=== PATIENT | male | born 1970 | race Caucasian/White ===

== ENCOUNTER 2019-04-29 08:50 | Inpatient (IN) ==
[2019-04-29 09:28] VITALS: O2SAT 96
[2019-04-29 09:38] LABS: Appearance Urine Clear (Clear); Bacteria Urine Automated Negative (Negative); Bilirubin Urine Negative (Negative); Blood Urine Negative (Negative); Color Urine Dark Yellow; Epithelial Cell Urine Auto 0-5 /lpf (0-5); Glucose Urine UA Negative (Negative); Ketones Urine Negative (Negative); Leukocyte Esterase Urine Trace (Negative); Nitrite Urine Negative (Negative); Protein Urine Negative (Negative); RBC Urine Automated 0-4 /hpf (0-4); Specific Gravity Urine 1.026 (1.000-1.030); Urobilinogen Urine Negative (Negative); pH Urine 5.5 (4.5-7.5)
[2019-04-29 09:51] LABS: Basophils # (auto) 0.02 K/uL (0-0.2); Basophils % (auto) 0.3 %; Eosinophils # (auto) 0.07 K/uL (0-0.5); Hematocrit (blood only) 43.7 % (42-52); Hemoglobin 15.2 g/dL (14.0-18.0); Immature Granulocytes # (auto) 0.01 K/uL (0.00-0.02); Immature Granulocytes % (auto) 0.1 %; Lymphocytes # (auto) 0.81 K/uL (1.2-3.4); Lymphocytes % (auto) 11.6 %; Mean Corpuscular Hemoglobin 29.8 pg (25-34); Mean Corpuscular Hgb Conc 34.8 g/dL (32-36); Mean Corpuscular Volume 85.7 fL (80-100); Mean Platelet Volume 9.1 fL (7.4-10.4); Monocytes # (auto) 0.44 K/uL (0.11-0.59); Monocytes % (auto) 6.3 %; Neutrophils # (auto) 5.66 K/uL (1.4-6.5); Neutrophils % (auto) 80.7 %; Platelet Count 240 K/uL (130-400); RDW Standard Deviation 37.8 fL (36.4-46.3); White Blood Count 7.01 K/uL (4.8-10.8)
[2019-04-29 10:04] LABS: Amphetamines+Metham, Urine Neg (Neg); Barbiturates, Urine Neg (Neg); Benzodiazepine, Urine Neg (Neg); Cocaine, Urine Neg (Neg); MDMA (Ecstacy), Urine Neg (Neg); Methadone, Urine Neg (Neg); Opiate, Urine Neg (Neg); Phencyclidine, Urine Neg (Neg)
[2019-04-29 10:08] LABS: Albumin Level 3.7 gm/dl (3.4-5.0); BUN Creatinine Ratio 19.8 (10-20); Calcium 9.2 mg/dl (8.5-10.1); Creatinine Clr Calc Pharmacy 139.6 ml/min; Est GFR (African American) 121.1; Est GFR (Non-African American) 104.5; Potassium 3.9 mmol/L (3.5-5.1)
[2019-04-29 10:17] LABS: Acetaminophen < 2 ug/ml (10-30); Salicylate < 1.7 mg/dl (2.8-20)
[2019-04-29 10:19] LABS: Albumin Globulin Ratio 1.1 (0.9-2); Bilirubin,Total 0.7 mg/dl (0.2-1); Globulin 3.3 gm/dl (2.5-4.0); Thyroid Stimulating Hormone 0.629 uIu/ml (0.300-4.500)
[2019-04-29] MEDS ORDERED: LORazepam 1 MG TAB PO STA (13:38)
--- NOTE | 2019-04-29 14:50 | Emergency Department Note ---
Entered by Kilo Nicolas acting as a scribe for History of Present Illness General Chief Complaint: Mental Health Evaluation Stated Complaint: MENTAL HEALTH EVAL, SENT BY DR Kay Seen by Provider: 04/29/19 09:01 Source: patient History of Present Illness Provider complaint: feels depressed Onset (ago): unknown Duration: getting worse History of same: Yes Context: + significant life stressor Associated psychiatric symptoms: + depression, + suicidal ideation and + homicidal ideation; no auditory hallucinations and no visual hallucinations If self harm: + admits thoughts of self harm The patient is a 48 year old male who presents to the Emergency Room with complaints of worsening depression that has been ongoing for the past couple of weeks. Per the psych outpatient case manager, the patient was sent here by his psychiatrist because she feels he needs further treatment. The patient states that he has been working with his psychiatrist to find the most effective doses of medication, however he does not believe his medication is working. The patient currently is taking Concerta, Klonopin, Effexor, Remeron, Wellbutrin, Methylphenidate, and Claritin. The patient reports that he has had increased stress as of late due to finanacial reasons and training for his new job. The patient adds that he does not like this new job nor did he enjoy his old one, so he does not know what to do stating " I do not enjoy anything". Additionally the patient endorses reoccurring suicidal thoughts over the past few weeks. The patient recalls that he has felt this way before but states "this time is different". The patient notes he does not have any plan nor has he ever attempted suicide in the past. The patient also has had brief homicidal thoughts but not towards anyone in particular. The patient denies any physical symptoms at this time but does mention that he is generally restless and uncomfortable. The patient also denies any AVH as well as any smoking, alcohol or drug use. Home Medications Home Medications Medication Instructions Recorded Confirmed Type clonazepam 0.5 mg PO DAILY PRN 04/21/18 04/29/19 History fluticasone propionate [Flonase 2 spray INTRANASAL DAILY 04/21/18 04/29/19 History Allergy Relief] loratadine [Claritin] 10 mg PO DAILY 04/21/18 04/29/19 History methylphenidate HCl 54 mg PO DAILY 04/21/18 04/29/19 History amlodipine 2.5 mg PO DAILY 04/29/19 04/29/19 History brexpiprazole [Rexulti] 2 mg PO DAILY 04/29/19 04/29/19 History fluticasone propion-salmeterol 1 inh INHALATION BID 04/29/19 04/29/19 History [Wixela Inhub] mirtazapine 45 mg PO QPM 04/29/19 04/29/19 History zaleplon 10 mg PO QPM 04/29/19 04/29/19 History Allergies Allergy/AdvReac Type Severity Reaction Status Date / Time No Known Drug Allergies Allergy Unknown none Verified 04/29/19 09:29 tree nut Allergy Unknown itchy Verified 04/29/19 09:29 watery eyes, sneezing Past Med/Surg History Medical History Asthma (Chronic) Depression (Chronic) Family History Other Family history non-contributory Social History Preferred Language: Kazakh Communication Ability: Effective Drawing Hand Required: No Beliefs That Will Affect Care: None Feels Safe at Home: Yes Smoking Status: Never smoker Review of Systems See HPI for pertinent positives & negatives. and A total of 10 systems reviewed and were otherwise negative Physical Exam Vital Signs Vital Signs - 24 hr 04/29/19 08:54 Temperature 36.5 C Temperature Source Oral Pulse Rate 103 H Pulse Rhythm Regular Respiratory Rate 20 Respiratory Effort / Characteristics Non-Labored Spontaneous Respiratory Depth Normal Blood Pressure 151/88 H Blood Pressure Mean 109 Pulse Oximetry 96 Oxygen Delivery Method Room Air Sepsis Recent Fever Within 48 Hours No Sepsis New/Unexplained Change in Mental Status No Sepsis Action Taken by Nursing No Action Required GENERAL: alert, well appearing, well nourished, no distress, non-toxic EYE EXAM: normal conjunctiva, PERRL and EOM's grossly intact OROPHARYNX: no exudate, no erythema, lips, buccal mucosa, and tongue normal and mucous membranes are moist NECK: supple, no nuchal rigidity, no adenopathy, non-tender LUNGS: Clear to auscultation. Normal chest wall mechanics, no w/r/r HEART: no murmurs, S1 normal and S2 normal ABDOMEN: abdomen soft, non-tender, normo-active bowel sounds, no masses, no rebound or guarding. BACK: Back is symmetrical on inspection and there is no deformity, no midline tenderness, no CVA tenderness. SKIN: no rashes and no bruising UPPER EXTREMITIES: upper extremities are grossly normal. FROM, nml pulses b/l. LOWER EXTREMITIES: No pitting edema. FROM, nml pulses b/l. NEURO EXAM: Normal sensorium, cranial nerves II-XII grossly intact, normal speech, no gross weakness of arms, no gross weakness of legs. PSYCH: Flat affect. Course 0907: Past medical records reviewed. The patient was evaluated in room A08, and a complete history and physical examination were performed. 0035: Patient was seen and evaluated by psychiatric case management and at this time is willing to come in voluntarily for inpatient treatment. correctional guard have begun doing a bed search. 1450: Bed search is ongoing as patient has not yet been accepted at a facility due to insurance reasons. Additional facilities are currently reviewing. 1500: The patient was signed out to Dr. Tim at change of shift. See his note for more information. Administered Medications Discontinued Medications Lorazepam (Ativan) 1 mg PO NOW STA Stop: 04/29/19 13:39 Last Admin: 04/29/19 13:42 Dose: 1 mg Documented by: [id number] Medical Decision Making Differential Diagnosis Differential diagnoses considered include mood disorder, infection, hypoglycemia, electrolyte abnormalities, cardiac sources, intracerebral event, toxicologic, neurologic, as well as others. Medical Records Attestation: I reviewed the patient's medical records. Home Medications Current Medication List: was personally reviewed by me Laboratory Data Attestation: I reviewed the patient's lab results. Result diagrams: 04/29/19 09:29 04/29/19 09:29 Lab Results 04/29/19 04/29/19 04/29/19 Range/Units 09:20 09:20 09:29 WBC 7.01 (4.8-10.8) K/uL RBC 5.10 (4.7-6.1) M/uL Hgb 15.2 (14.0-18.0) g/dL Hct 43.7 (42-52) % MCV 85.7 (80-100) fL MCH 29.8 (25-34) pg MCHC 34.8 (32-36) g/dL RDW Std Deviation 37.8 (36.4-46.3) fL RDW Coeff of Ari 12.0 (11.5-14.5) % Plt Count 240 (130-400) K/uL MPV 9.1 (7.4-10.4) fL Immature Gran % (Auto) 0.1 % Neut % (Auto) 80.7 % Lymph % (Auto) 11.6 % Union % (Auto) 6.3 % Eos % (Auto) 1.0 % Baso % (Auto) 0.3 % Immature Gran # (Auto) 0.01 (0.00-0.02) K/uL Neut # (Auto) 5.66 (1.4-6.5) K/uL Lymph # (Auto) 0.81 L (1.2-3.4) K/uL Union # (Auto) 0.44 (0.11-0.59) K/uL Eos # (Auto) 0.07 (0-0.5) K/uL Baso # (Auto) 0.02 (0-0.2) K/uL Sodium (136-145) mmol/L Potassium (3.5-5.1) mmol/L Chloride (98-107) mmol/L Carbon Dioxide (21-32) mmol/L Anion Gap (3-11) BUN (7-18) mg/dl Creatinine (0.6-1.4) mg/dl Est Cr Clr Drug Dosing ml/min Est GFR ( Amer) Est GFR (Non-Af Amer) BUN/Creatinine Ratio (10-20) Glucose (70-99) mg/dl Calcium (8.5-10.1) mg/dl Total Bilirubin (0.2-1) mg/dl AST (15-37) U/L ALT (12-78) U/L Alkaline Phosphatase (45-117) U/L Total Protein (6.4-8.2) gm/dl Albumin (3.4-5.0) gm/dl Globulin (2.5-4.0) gm/dl Albumin/Globulin Ratio (0.9-2) TSH (0.300-4.500) uIu/ml Urine Color Dark Yellow Urine Appearance Clear (Clear) Urine pH 5.5 (4.5-7.5) Ur Specific Magnolia 1.026 (1.000-1.030) Urine Protein Negative (Negative) Urine Glucose (UA) Negative (Negative) Urine Ketones Negative (Negative) Urine Blood Negative (Negative) Urine Nitrite Negative (Negative) Urine Bilirubin Negative (Negative) Urine Urobilinogen Negative (Negative) Ur Leukocyte Esterase Trace H (Negative) Urine WBC (Auto) 1-5 (0-5) /hpf Urine RBC (Auto) 0-4 (0-4) /hpf U Hyaline Cast (Auto) 1-5 (0-5) /lpf U Epithel Cells (Auto) 0-5 (0-5) /lpf Urine Bacteria (Auto) Negative (Negative) Salicylates (2.8-20) mg/dl Urine Opiates Screen Neg (Neg) Ur Methadone, Qual Neg (Neg) Acetaminophen (10-30) ug/ml Urine Barbiturates Neg (Neg) Ur Phencyclidine (PCP) Neg (Neg) U Amphetamin/Meth Scrn Neg (Neg) MDMA (Ecstasy) Screen Neg (Neg) U Benzodiazepines Scrn Neg (Neg) Ur Cocaine Metabolite Neg (Neg) U Marijuana (THC) Screen Neg (Neg) Ethyl Alcohol mg/dL (0-3) mg/dl 04/29/19 04/29/19 04/29/19 Range/Units 09:29 09:29 09:29 WBC (4.8-10.8) K/uL RBC (4.7-6.1) M/uL Hgb (14.0-18.0) g/dL Hct (42-52) % MCV (80-100) fL MCH (25-34) pg MCHC (32-36) g/dL RDW Std Deviation (36.4-46.3) fL RDW Coeff of Ari (11.5-14.5) % Plt Count (130-400) K/uL MPV (7.4-10.4) fL Immature Gran % (Auto) % Neut % (Auto) % Lymph % (Auto) % Union % (Auto) % Eos % (Auto) % Baso % (Auto) % Immature Gran # (Auto) (0.00-0.02) K/uL Neut # (Auto) (1.4-6.5) K/uL Lymph # (Auto) (1.2-3.4) K/uL Union # (Auto) (0.11-0.59) K/uL Eos # (Auto) (0-0.5) K/uL Baso # (Auto) (0-0.2) K/uL Sodium 141 (136-145) mmol/L Potassium 3.9 (3.5-5.1) mmol/L Chloride 110 H (98-107) mmol/L Carbon Dioxide 24 (21-32) mmol/L Anion Gap 8.0 (3-11) BUN 17 (7-18) mg/dl Creatinine 0.85 (0.6-1.4) mg/dl Est Cr Clr Drug Dosing 139.6 ml/min Est GFR ( Amer) 121.1 Est GFR (Non-Af Amer) 104.5 BUN/Creatinine Ratio 19.8 (10-20) Glucose 112 H (70-99) mg/dl Calcium 9.2 (8.5-10.1) mg/dl Total Bilirubin 0.7 (0.2-1) mg/dl AST 12 L (15-37) U/L ALT 27 (12-78) U/L Alkaline Phosphatase 60 (45-117) U/L Total Protein 7.0 (6.4-8.2) gm/dl Albumin 3.7 (3.4-5.0) gm/dl Globulin 3.3 (2.5-4.0) gm/dl Albumin/Globulin Ratio 1.1 (0.9-2) TSH 0.629 (0.300-4.500) uIu/ml Urine Color Urine Appearance (Clear) Urine pH (4.5-7.5) Ur Specific Magnolia (1.000-1.030) Urine Protein (Negative) Urine Glucose (UA) (Negative) Urine Ketones (Negative) Urine Blood (Negative) Urine Nitrite (Negative) Urine Bilirubin (Negative) Urine Urobilinogen (Negative) Ur Leukocyte Esterase (Negative) Urine WBC (Auto) (0-5) /hpf Urine RBC (Auto) (0-4) /hpf U Hyaline Cast (Auto) (0-5) /lpf U Epithel Cells (Auto) (0-5) /lpf Urine Bacteria (Auto) (Negative) Salicylates < 1.7 L (2.8-20) mg/dl Urine Opiates Screen (Neg) Ur Methadone, Qual (Neg) Acetaminophen < 2 L (10-30) ug/ml Urine Barbiturates (Neg) Ur Phencyclidine (PCP) (Neg) U Amphetamin/Meth Scrn (Neg) MDMA (Ecstasy) Screen (Neg) U Benzodiazepines Scrn (Neg) Ur Cocaine Metabolite (Neg) U Marijuana (THC) Screen (Neg) Ethyl Alcohol mg/dL < 3.0 (0-3) mg/dl Blood Pressure Blood Pressure Findings: Elevated blood pressure Blood Pressure Disposition: Referred to patients primary care provider ELZA Narrative Pt here calm and cooperative after being sent in by his psychiatrist. Pt agreeable with plan for inpatient admission. VS stable and labs reassuring. Case mgmt making referrals to secure bed with inpatient facility at time of sign out. ------ I assumed care at the change of shift. A bed search was being performed for a voluntary admission. Unfortunately, it was a difficult finding bed placement. The patient became impatient and was asking to leave. A 302 petition was filled out by his outpatient provider. Patient is not safe for discharge home. He is suicidal and at risk for self-harm. I did sign the medical portion of the 302 petition. Patient is currently c ooperative. He is aware of the involuntary hospitalization. He will be brought into [facility] for psychiatric care. Dwain Tim MD Impression & Plan Depression, Suicidal ideation Discharge Plan Visit Data *Final* Discharge Date/Time: 04/29/19 19:19 Chief Complaint: Mental Health Evaluation Stated Complaint: MENTAL HEALTH EVAL, SENT BY DR JOSÉ MIGUEL Provider: Dwain Tim Discharge Problem: Depression, Suicidal ideation Patient Disposition: Admitted As Inpatient Discharge Instructions Interventions: ED Discharge Assessment Last Done: 04/29/19 19:19 Discharge Problem: Depression Qualifiers: Depression Type: unspecified Qualified Code(s): F32.9 - Major depressive disorder, single episode, unspecified The pietroibe's documentation has been prepared under my direction and personally reviewed by me in its entirety. I confirm that the note above accurately reflects all work, treatment, procedures, and medical decision making performed by me.
[2019-04-29] MEDS ORDERED: MAGNESIUM HYDROXIDE SUSP 30 ML UDC PO PRN (17:58)
[2019-04-29] MEDS ORDERED: SODIUM CHLORIDE 0.65% NA SOLN 45 ML (OCEAN) PRN (17:58)
[2019-04-29] MEDS ORDERED: BISMUTH SUBSALICYLATE PER ML OMNICELL CHARGE PO PRN (17:58)
[2019-04-29] MEDS ORDERED: ALUMINUM/MAGNESIUM SUSP 30 ML UDC PO PRN (17:58)
[2019-04-29] MEDS: ACETAMINOPHEN 325 MG TAB PO PRN (20:32)
[2019-04-29] MEDS: ZALEPLON 5 MG CAPSULE PO SCH (21:33)
[2019-04-29] MEDS: FLUTICASONE/SALMETEROL 250/50 (ADVAIR) 14 PUFF/1 INHALER INH SCH (21:33)
[2019-04-29] MEDS: MIRTAZAPINE SOLTAB 15 MG PO SCH (21:34)
[2019-04-30] MEDS ORDERED: FLUOXETINE HCL 20 MG CAP PO ONE (10:17)
--- NOTE | 2019-04-30 10:21 | History & Physical ---
Date of Service April 30, 2019 Impression / Recommendations Impression 48-year-old single male with a history of recurrent depression, dysthymic disorder, and generalized anxiety disorder who symptoms have been ongoing for > 1 year with acute worsening over the past month in the context of starting a new job and multiple psychosocial stressors. He is admitted on an involuntary 302 commitment after being seen by his outpatient psychiatrist yesterday and endorsing worsening mood and anxiety with suicidal thoughts and thoughts to harm others. He is reporting severe restlessness this morning, which was also occurring his doctor's office yesterday. There may be an element of di scontinuation as his Rexulti he is nonformulary so he did not get it today. He is poorly able to engage in the assessment due to the severity of his symptoms, and would be a good candidate for ECT were not available, but is declining referral at this time saying "I can't do that," but is not really able to engage in a discussion of the risks and benefits of different treatment options. He is severely depressed and at high risk for suicide if discharged at this time. (1) Suicidal ideation: Every 15 minute checks for safety. Continue hospitalization on an involuntary commitment. This expires on Saturday05/04/2019, and we will need to continue to gather information toward the need for ongoing treatment. Present on Admission?: Yes (2) Depression: Continue mirtazapine 45 mg at bedtime. Concerta is nonformulary; unclear if this is for ADHD or depression (patient states he does not know if he is ever been diagnosed with ADHD, and I do not see it in his outpatient records). Rexulti he is nonformulary and the patient states he has no one to him, so we will explore ways to get samples from the outpatient clinic. In the meantime, we will give a one-time dose of fluoxetine 20 mg in case some of his restlessness is due to discontinue -Coordinate care with Dr. Alexander to explore other treatment options. As above encouraged him to consider ECT, which she was unwilling to do at this time. -Explore options for family meeting. Patient currently stating he has no supports. -Coordinate care with Russell BRYANT. -Encourage participation in groups and therapy, work on healthy coping skills and discharge safety plan. Depression Type: major depressive disorder Major depression recurrence: recurrent Active/Remission status: currently active Major depression episode severity: severe Psychotic features: without psychotic features Qualified Code(s): F33.2 - Major depressive disorder, recurrent severe without psychotic features Present on Admission?: Yes (3) Generalized anxiety disorder: Continue home dose of clonazepam 0.5 mg daily as needed, and offer hydroxyzine as needed as well. Present on Admission?: Yes (4) Asthma: Continue loratadine, Flonase, and inhaler. 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 Chief Complaint "Trying to work two jobs, just overwhelming, miserable". History of Present Illness The patient presented to the ER yesterday 03/29/2019 [facility], after seeing her at the outpatient clinic. Review of her records: He has been seen monthly to twice a month for over a year for chronic depressive and anxiety symptoms. He has been on clonazepam, Concerta, and zaleplon for over a year, and was hospitalized at the [facility] 04/2018, where he was started on mirtazapine. About a year ago, venlafaxine was switched to bupropion, which was then switched to Rexulti about 4 months ago, and he initially reported improved mood. Rexulti and mirtazapine have recently been increased to target depression and anxiety. He has not been in therapy due to his work schedule, although it had been recommended, and has recently explored [facility] treatment at [place]. Over the summer, he was applying to new jobs as he did not like his job at [employer], but struggling to follow through on tasks due to depression. Mood has been worsening for the past month, reporting shame (because major case detective had to help him clean his room) and loneliness. Last month, he got a new job at the [employer] center, and has been attending training 5 days a week, while continuing to work at [employer] on Saturdays. Despite this, he reported ongoing anxiety about his finances, and has been struggling with musculoskeletal back pain for which she is in physical therapy. He has been gaining weight, and reporting frequent bowel movements which he attr ibuted to anxiety (preceded medication changes). He has been concerned about finances, as he will be losing his [employer] insurance at some point, and his new insurance has higher co-pays. Anxiety increased significantly with starting his new job, and he was using clonazepam once a daily with benefit. He has reported good compliance with medications. At his appointment yesterday, he reported worsening mood and anxiety, pacing and restlessness, and suicidal ideation. He said he had not tried to harm himself due to fear that he would not succeed, but could not identify any other reasons to go on living. He was fearful of going to the hospital that he did not want to miss work or lose his job and was worried about the cost. He endorsed hopelessness, helplessness, and worthlessness, and had been unable to engage in behavioral techniques for improving mood or anxiety. He felt unable to follow through on tasks that have been identified to increase his socialization or address his financial concerns, and denied substance abuse. He was ambivalent about hospitalization, but agreed to go to the ER, and Dr. Alexander completed a 302 petition. In the ER, he stated he felt worse than he ever had before, and endorsed suicidal thoughts and brief homicidal thoughts at times, but without a particular target. He reported restlessness and feeling uncomfortable, and had a prolonged bed search, during which she became impatient and asked to leave. He was ultimately placed on a 302 involuntary commitment. On my assessment, the patient reports mood has been depressed for >1 year, stating he never fully recovered after hospitalization a year ago. Mood worsened 3-4 weeks ago when he started a second job, and states he is "miserable" at both jobs. Reports restlessness, unable to sit still, low energy and motivation, "sad, bored, frustrated, and embarrassed." Has been more tearful, hopeless, and endorses anhedonia. Appetite "comes and goes," but denies changes in weight. Has been having more frequent and intense suicidal thoughts, describes "flashes popping into my head," including "stabbing myself, taking a bunch of pills, jumping off of something." Was hoping to transition to [employer] job, but now is not sure as he doesn't like it and doesn't know if he will be able to keep his job due to hospitalization and missing. He has been working at [employer] for "a long time," but was having worsening back pain, and looked for a new job as it pays more. He did not bring his medications in with him, and Rexulti and Concerta are nonformulary. He is upset that these are not available here and says "no one told me." He reports excessive worry, about many things, inability to control the worry, interference with sleep and concentration, and muscle tension. Denies panic attacks, manic and psychotic symptoms. He reports feeling uncomfortable and "fidgety," and hydroxyzine was helpful. Reports support from one friend and major case detective. 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 Patient states he started psychiatric treatment in his teens, but cannot recall what was going on at the time. Current Psychiatric Diagnosis: Unsure, likely depression and anxiety Outpatient Services: Psychiatrist: Dr. Alexander at [facility] No therapist ANNETTE Sanchez Previous Psych Admissions: 1 previous hospitalization at [facility] in 04/2018 (was briefly admitted here first and then had to be transferred to [facility] due to his insurance) Do You Have Access To A Gun?: No History of Previous Suicide Attempt: No Past Medication Trials: "all kinds of different stuff" per patient Per outpatient records: Trazodone - (10/18/2014) retrial 09/2014 oversedated Paxil - 2days "bad experience" Effexor XR - unknown response, retrial partial help, watching HTN Zoloft - unknown response Topamax - used for weight loss issues Abilify - low dose caused drowsiness and akathesia Buspirone - notable sedation Wellbutrin SR - retrial Spring 2013, less heroic sleep periods but PERES at 300mg/d dose, reduced to 150mg/d Klonopin Cymbalta - up to 90mg/d, not fully effective as solo agent for depression no better at 90 than 60mg/d, stopped to go to [facility], then viibryd January 2014 Lamictal - augmentation for depression with Cymbalta Summer 2012, tapered off 01/2013 due to ongoing low mood Cytomel - augmentation 01/2013 with cymbalta, caused suppressed appetite Adderall XR - augmentation for mood 05/2013, HR elevated BP at 40mg/AM and 20mg bid,that dose and lower doses not helpful Concerta - 36mg/AM not fully helpful as augmentation in combatting fatigue or mood Brintellix - dizzyness and nausea and high anxiety on initial doses See Medent For Further Medication Trials Pristiq - worsening of mood (from effexor to pristiq) returned to effexor XR 150. Allergies Allergy/AdvReac Type Severity Reaction Status Date / Time No Known Drug Allergies Allergy Unknown none Verified 04/29/19 09:29 tree nut Allergy Unknown itchy Verified 04/29/19 09:29 watery eyes, sneezing Home Medications Home Medications Medication Instructions Recorded Confirmed Type clonazepam 0.5 mg PO DAILY PRN 04/21/18 04/29/19 History fluticasone propionate [Flonase 2 spray INTRANASAL DAILY 04/21/18 04/29/19 History Allergy Relief] loratadine [Claritin] 10 mg PO DAILY 04/21/18 04/29/19 History methylphenidate HCl 54 mg PO DAILY 04/21/18 04/29/19 History amlodipine 2.5 mg PO DAILY 04/29/19 04/29/19 History brexpiprazole [Rexulti] 2 mg PO DAILY 04/29/19 04/29/19 History fluticasone propion-salmeterol 1 inh INHALATION BID 04/29/19 04/29/19 History [Wixela Inhub] mirtazapine 45 mg PO QPM 04/29/19 04/29/19 History zaleplon 10 mg PO QPM 04/29/19 04/29/19 History Family History Family History of: None Family Mental Health History Comment: step-brother completed suicide (pt had never met him) Alcohol History Hx of Alcohol Use Over the Past 12 Months: Yes (Very occasional) AUDIT Total Score: 1 Smoking Use Have You Smoked or Used Tobacco Products in the Last 30 Days: No Smoking Status: Never smoker Substance History Hx of Prescription Med Misuse Over the Past 12 Months: No Hx of Over the Counter Med Misuse Over the Past 12 Months: No Hx of Inhalent Misuse Over the Past 12 Months: No Hx of Organic Substance Use Over the Past 12 Months: No Hx of Illegal Substances/Street Drug Use Over Past 12 Months: No Problems as a Result of Past Substance Use: None Identified Personal History Living Arrangements: Apartment Living Arrangements Comments: with roommates in [place] Childhood: Grew up in [place], raised by both parents who and had shared custody. Father . Mother and brother now live in [place]. 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 Marital Status: Single Number Of Children: 0 Beliefs That Will Affect Care: None Hx Legal Problems: No Hx Traumatic Life Events: No Patient History Medical History Asthma (Chronic) Depression (Chronic) Family History Other Family history non-contributory Social History Preferred Language: Indian Communication Ability: Effective Insurance Processing Clerk Required: No Beliefs That Will Affect Care: None Feels Safe at Home: Yes Smoking Status: Never smoker Review of Systems Review of Systems: All systems reviewed & are unremarkable except as noted in HPI & below back pain Physical Exam Psychiatric: Orientation: alert and cooperative (Partially, cooperation limited by severity of symptoms and restlessness) Apperance: appropriately dressed and + disheveled Limited grooming and hygiene Eye Contact: + poor eye contact Does not make eye contact, mostly staring at the floor Motor Behavior: steady gait and station Fidgeting in his seat, shifting frequently Minimal, slowed, monotone, slight delay Affect: + depressed affect, + anxious affect, + constricted affect and mood congruent with affect Mood: + depressed mood and + anxious mood Thought Process: + concrete thought process Thought Content: + preoccupation, + cognitive distortions, + hopelessness, + worthlessness, + loneliness and + guilt Suicidal Thoughts: + reports suicidal thoughts Homicidal Thoughts: denies homicidal thoughts Hallucinations: no auditory hallucinations and no visual hallucinations Cognition: language grossly intact Memory impaired by psychiatric symptoms Estimated Intelligence: consistent with education level Insight: + fair insight Judgement: + fair judgement Vital Signs (Past 24 Hours): Last Vital Signs Temp 36.3 C L 04/30/19 06:39 Pulse 93 H 04/30/19 06:40 Resp 18 04/30/19 06:39 BP 131/92 04/30/19 06:40 Pulse Ox 96 04/29/19 19:02 Exam Statement: A physical exam was performed in the ER prior to admission to the unit by Dr. Marcelina Mancilla. I accept that physical as correct/medical clearance for the inpatient physical exam. Results & Data Laboratory Results Laboratory Results - last 24 hr 04/29/19 04/29/19 04/29/19 09:20 09:29 09:29 WBC 7.01 RBC 5.10 Hgb 15.2 Hct 43.7 MCV 85.7 MCH 29.8 MCHC 34.8 RDW Std Deviation 37.8 RDW Coeff of Ari 12.0 Plt Count 240 MPV 9.1 Immature Gran % (Auto) 0.1 Neut % (Auto) 80.7 Lymph % (Auto) 11.6 Ralls % (Auto) 6.3 Eos % (Auto) 1.0 Baso % (Auto) 0.3 Immature Gran # (Auto) 0.01 Neut # (Auto) 5.66 Lymph # (Auto) 0.81 L Ralls # (Auto) 0.44 Eos # (Auto) 0.07 Baso # (Auto) 0.02 Sodium 141 Potassium 3.9 Chloride 110 H Carbon Dioxide 24 Anion Gap 8.0 BUN 17 Creatinine 0.85 Est Cr Clr Drug Dosing 139.6 Est GFR ( Amer) 121.1 Est GFR (Non-Af Amer) 104.5 BUN/Creatinine Ratio 19.8 Glucose 112 H Calcium 9.2 Total Bilirubin 0.7 AST 12 L ALT 27 Alkaline Phosphatase 60 Total Protein 7.0 Albumin 3.7 Globulin 3.3 Albumin/Globulin Ratio 1.1 TSH 0.629 Salicylates Urine Opiates Screen Neg Ur Methadone, Qual Neg Acetaminophen Urine Barbiturates Neg Ur Phencyclidine (PCP) Neg U Amphetamin/Meth Scrn Neg MDMA (Ecstasy) Screen Neg U Benzodiazepines Scrn Neg Ur Cocaine Metabolite Neg U Marijuana (THC) Screen Neg Ethyl Alcohol mg/dL 04/29/19 04/29/19 09:29 09:29 WBC RBC Hgb Hct MCV MCH MCHC RDW Std Deviation RDW Coeff of Ari Plt Count MPV Immature Gran % (Auto) Neut % (Auto) Lymph % (Auto) Ralls % (Auto) Eos % (Auto) Baso % (Auto) Immature Gran # (Auto) Neut # (Auto) Lymph # (Auto) Ralls # (Auto) Eos # (Auto) Baso # (Auto) Sodium Potassium Chloride Carbon Dioxide Anion Gap BUN Creatinine Est Cr Clr Drug Dosing Est GFR ( Amer) Est GFR (Non-Af Amer) BUN/Creatinine Ratio Glucose Calcium Total Bilirubin AST ALT Alkaline Phosphatase Total Protein Albumin Globulin Albumin/Globulin Ratio TSH Salicylates < 1.7 L Urine Opiates Screen Ur Methadone, Qual Acetaminophen < 2 L Urine Barbiturates Ur Phencyclidine (PCP) U Amphetamin/Meth Scrn MDMA (Ecstasy) Screen U Benzodiazepines Scrn Ur Cocaine Metabolite U Marijuana (THC) Screen Ethyl Alcohol mg/dL < 3.0 Current Inpatient Medications Current Inpatient Medications: Current Inpatient Medications Acetaminophen (Tylenol) 650 mg PO Q4H PRN PRN Reason: Headache or Minor Fever Stop: 05/29/19 17:57 Last Admin: 04/29/19 20:32 Dose: 650 mg Documented by: Al Hydrox/Mg Hydrox/Simethicone (Maalox) 30 ml PO Q4H PRN PRN Reason: GI Upset Stop: 05/29/19 17:57 Amlodipine Besylate (Norvasc) 2.5 mg PO DAILY KANDICE Stop: 05/30/19 08:59 Bismuth Subsalicylate (Kaopectate) 15 ml PO PRN PRN PRN Reason: Loose Stool Stop: 05/29/19 17:57 Clonazepam (Klonopin) 0.5 mg PO DAILY PRN PRN Reason: Anxiety Stop: 05/29/19 17:58 Fluticasone Propionate (Flonase) 2 sprays NA DAILY KANDICE Stop: 05/30/19 08:59 Hydroxyzine HCl (Vistaril) 50 mg PO HSZ PRN PRN Reason: insomnia Stop: 05/29/19 18:21 Hydroxyzine HCl (Vistaril) 25 mg PO Q4H PRN PRN Reason: Anxiety Stop: 05/29/19 17:57 Last Admin: 04/30/19 06:34 Dose: 25 mg Documented by: Loratadine (Claritin) 10 mg PO DAILY KANDICE Stop: 05/30/19 08:59 Magnesium Hydroxide (Milk Of Magnesia) 30 ml PO DAILY PRN PRN Reason: Constipation Stop: 05/29/19 17:57 Mirtazapine (Remeron Solutab) 45 mg PO QPM KANDICE Stop: 05/29/19 20:59 Last Admin: 04/29/19 21:34 Dose: 45 mg Documented by: Miscellaneous (Order Awaiting Action) 1 ea N/A QS KANDICE Stop: 05/30/19 00:00 Last Admin: 04/30/19 00:28 Dose: Not Given Documented by: Miscellaneous (Order Awaiting Action) 1 ea N/A QS KANDICE Stop: 05/30/19 00:00 Last Admin: 04/30/19 00:27 Dose: Not Given Documented by: Fluticasone/Salmeterol (Advair Diskus 250/50) 1 puffs INH BID KANDICE Stop: 05/29/19 20:59 Last Admin: 04/29/19 21:33 Dose: 1 puffs Documented by: Sodium Chloride ([place] Nasal) 1 - 2 sprays NA PRN PRN PRN Reason: Nasal Dryness/Congestion Stop: 05/29/19 17:57 Zaleplon (Sonata) 10 mg PO QPM KANDICE Stop: 05/29/19 20:59 Last Admin: 04/29/19 21:33 Dose: 10 mg Documented by:
[2019-04-30] MEDS: FLUTICASONE PROPIONATE NA SPR 16 GM BTL SCH (10:49)
[2019-04-30] MEDS: FLUTICASONE/SALMETEROL 250/50 (ADVAIR) 14 PUFF/1 INHALER INH SCH ×2 (10:49→21:32)
[2019-04-30] MEDS: LORATADINE 10 MG TAB PO SCH (10:49)
[2019-04-30] MEDS: AMLODIPINE BESYLATE 5 MG TAB PO SCH (10:50)
[2019-04-30] MEDS: clonazePAM 0.5 MG TAB PO PRN (12:57)
[2019-04-30] MEDS: MIRTAZAPINE SOLTAB 15 MG PO SCH (21:32)
[2019-04-30] MEDS: LITHIUM CARBONATE 300 MG TAB PO SCH (21:33)
[2019-04-30] MEDS: ZALEPLON 5 MG CAPSULE PO SCH (21:33)
[2019-05-01] MEDS: FLUTICASONE/SALMETEROL 250/50 (ADVAIR) 14 PUFF/1 INHALER INH SCH ×2 (08:32→22:14)
[2019-05-01] MEDS: METHYLPHENIDATE HCL PO SCH (08:33)
[2019-05-01] MEDS: FLUTICASONE PROPIONATE NA SPR 16 GM BTL SCH (08:33)
[2019-05-01] MEDS: LORATADINE 10 MG TAB PO SCH (08:33)
[2019-05-01] MEDS: AMLODIPINE BESYLATE 5 MG TAB PO SCH (08:34)
[2019-05-01] MEDS: PATIENT'S OWN CONTROLLED MED PO SCH (08:36)
--- NOTE | 2019-05-01 09:22 | Psychiatric Progress Note ---
Date of Service May 01, 2019 Impression / Recommendations Impression 48-year-old single male with a history of recurrent depression, dysthymic disorder, and generalized anxiety disorder who symptoms have been ongoing for > 1 year with acute worsening over the past month in the context of starting a new job and multiple psychosocial stressors. He is admitted on an involuntary 302 commitment after being seen by his outpatient psychiatrist yesterday and endorsing worsening mood and anxiety with suicidal thoughts and thoughts to harm others. On admission, he reported severe restlessness, which was also occurring his doctor's office the day prior to admission. There may be an element of discontinuation as his Rexulti he is nonformulary, and he was therefore unable to receive the medication. Patient's ability to effectively communicate has significantly improved since yesterday, but there is concern for significant regression after discharge - given his long-standing history of symptoms. ECT would still be a reasonably treatment option for him, and can be discussed f urther. He is severely depressed and at high risk for suicide if discharged at this time. No criteria to pursue 303 involuntary commitment, will continue to monitor mood and offer that patient sign in if treatment is recommended beyond the length of his 302. (1) Suicidal ideation: Every 15 minute checks for safety. Continue hospitalization on an involuntary commitment. This expires on Saturday05/04/2019, and we will need to continue to gather information toward the need for ongoing treatment. 05/01 - Denies SI today, but unable to convincingly contract for safety - Ensure consistency of mood and resolution of SI prior to discharge (2) Depression: Continue mirtazapine 45 mg at bedtime. Concerta is nonformulary; unclear if this is for ADHD or depression (patient states he does not know if he is ever been diagnosed with ADHD, and I do not see it in his outpatient records). Rexulti he is nonformulary and the patient states he has no one to him, so we will explore ways to get samples from the outpatient clinic. In the meantime, we will give a one-time dose of fluoxetine 20 mg in case some of his restlessness is due to discontinue -Coordinate care with Dr. Alexander to explore other treatment options. As above encouraged him to consider ECT, which she was unwilling to do at this time. -Explore options for family meeting. Patient currently stating he has no supports. -Coordinate care with Russell BRYANT. -Encourage participation in groups and therapy, work on healthy coping skills and discharge safety plan. 05/01 - [place] 300mg qHS was initiated following initial assessment yesterday, will continue at current dose. Continue mirtazapine 45mg and Concerta 54mg - friend was not able to locate Michael to bring in for administration of non- formulary medication - Continue to educate on potential for ECT - Coordinate care with case planner - Encourage participation in group and recreational therapy (3) Generalized anxiety disorder: Continue home dose of clonazepam 0.5 mg daily as needed, and offer hydroxyzine as needed as well. 05/01 - Continue as above - anxiety significantly improved today - If anxiety is exacerbated, consider having clonazepam available BID prn for management of symptoms (4) Asthma: Continue loratadine, Flonase, and inhaler. 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 Chief Complaint "I'm feeling ok, better than I had been." Review of Systems Notes Constitutional: denied Cardiovascular: denied Respiratory: denied Gastrointestinal: denied Neurological: denied Psychiatric: denies symptoms other than stated above Total of at least 10 systems reviewed, pertinent positives as above and in HPI. Sleep Information Total Hours of Sleep: 7.25 Sleep Comments: Alfonso was up early reading. Meal Information Percent Meal Consumed - Breakfast: 100 Percent Meal Consumed - Lunch: 100 Percent Meal Consumed - Dinner: 100 Subjective Subjective Patient was seen & assessed and interval progress reviewed with treatment team. Staff reports the patient had been rather anxious for most of the day yesterday. He did participate in groups, but was largely isolative and not talkative with peers. Pt was seen today to assess progress since admission. Pt states that he is feeling "better than I had been", and admits that he is feeling less anxious today. He reports that he is attempting to attend groups, to "do everything I have to do, to learn how I can feel better, and eventually get out of here." He states that he is grateful for some medication adjustments and hopes they are helpful, but otherwise states "I don't know what I can do to change my home situation." He shares that he is displeased with both of his jobs, and even when he is home - "I don't do productive things. My living space is utter chaos, and I just find things to pass the time." He is planning to continue to attend group programming to determine what he can reasonably change of his situation, to therefore improve his mental health. He states that his concentration is significantly improved today, as he is actually able to read a book. He states that overall, "this is the best I've felt in at least a week." Despite this improvement, he is concerned about return to his usual pattern of behavior once he returns home. Pt denies SI since admission, but is not convincingly able to contract for safety outside of the hospital setting. He denies other needs or concerns today. Physical Exam Psychiatric Orientation: alert, oriented x 3 and cooperative (timid, but pleasant) Apperance: appropriately dressed (casually, in long-sleeve sweater and khaki pants), appropriately groomed and appeared stated age Eye Contact: good eye contact Motor Behavior: no abnormal motor movements (observed while laying in bed, had been actively reading) Speech: normal rate/rhythm/volume of speech (monotone, spontaneous) Affect: + depressed affect and + anxious affect (mildly, significantly reduced from observations yesterday) Mood: + depressed mood (but states "significantly better today than yesterday") Thought Process: goal directed thought process, clear/coherent thought process and thought association intact Thought Content: reality based without delusions and + hopelessness (intermittently) Suicidal Thoughts: denies suicidal thoughts (at present) and denies suicidal intent Unable to convincingly contract for safety outside of hospital setting Homicidal Thoughts: denies homicidal thoughts Hallucinations: no auditory hallucinations and no visual hallucinations Cognition: attention grossly intact and language grossly intact Insight: + fair insight Judgement: + fair judgement Vital Signs (Past 24 Hours) Last Vital Signs Temp 36.8 C 05/01/19 06:00 Pulse 98 H 05/01/19 06:35 Resp 18 05/01/19 06:00 BP 131/95 05/01/19 06:35 Pulse Ox 96 04/29/19 19:02 Results & Data Current Inpatient Medications Current Inpatient Medications: Current Inpatient Medications Acetaminophen (Tylenol) 650 mg PO Q4H PRN PRN Reason: Headache or Minor Fever Stop: 05/29/19 17:57 Last Admin: 04/29/19 20:32 Dose: 650 mg Documented by: Al Hydrox/Mg Hydrox/Simethicone (Maalox) 30 ml PO Q4H PRN PRN Reason: GI Upset Stop: 05/29/19 17:57 Amlodipine Besylate (Norvasc) 2.5 mg PO DAILY KANDICE Stop: 05/30/19 08:59 Last Admin: 05/01/19 08:34 Dose: 2.5 mg Documented by: Bismuth Subsalicylate (Kaopectate) 15 ml PO PRN PRN PRN Reason: Loose Stool Stop: 05/29/19 17:57 Clonazepam (Klonopin) 0.5 mg PO DAILY PRN PRN Reason: Anxiety Stop: 05/29/19 17:58 Last Admin: 04/30/19 12:57 Dose: 0.5 mg Documented by: Fluticasone Propionate (Flonase) 2 sprays NA DAILY KANDICE Stop: 05/30/19 08:59 Last Admin: 05/01/19 08:33 Dose: 2 sprays Documented by: Hydroxyzine HCl (Vistaril) 50 mg PO HSZ PRN PRN Reason: insomnia Stop: 05/29/19 18:21 Hydroxyzine HCl (Vistaril) 25 mg PO Q4H PRN PRN Reason: Anxiety Stop: 05/29/19 17:57 Last Admin: 04/30/19 06:34 Dose: 25 mg Documented by: [place] Carbonate ([place] Carbonate) 300 mg PO HS KANDICE Stop: 05/30/19 21:59 Last Admin: 04/30/19 21:33 Dose: 300 mg Documented by: Loratadine (Claritin) 10 mg PO DAILY KANDICE Stop: 05/30/19 08:59 Last Admin: 05/01/19 08:33 Dose: 10 mg Documented by: Magnesium Hydroxide (Milk Of Magnesia) 30 ml PO DAILY PRN PRN Reason: Constipation Stop: 05/29/19 17:57 Methylphenidate HCl (Concerta) 1 ea PO DAILY KANDICE Stop: 05/31/19 08:59 Last Admin: 05/01/19 08:33 Dose: 1 ea Documented by: Mirtazapine (Remeron Solutab) 45 mg PO QPM KANDICE Stop: 05/29/19 20:59 Last Admin: 04/30/19 21:32 Dose: 45 mg Documented by: Miscellaneous (Order Awaiting Action) 1 ea N/A QS KANDICE Stop: 05/30/19 00:00 Last Admin: 04/30/19 10:54 Dose: Not Given Documented by: Non-Formulary Medication (Patient's Own Controlled Med) 1 ea PO DAILY KANDICE Stop: 05/15/19 08:59 Last Admin: 05/01/19 08:36 Dose: Not Given Documented by: Fluticasone/Salmeterol (Advair Diskus 250/50) 1 puffs INH BID KANDICE Stop: 05/29/19 20:59 Last Admin: 05/01/19 08:32 Dose: 1 puffs Documented by: Sodium Chloride ([place] Nasal) 1 - 2 sprays NA PRN PRN PRN Reason: Nasal Dryness/Congestion Stop: 05/29/19 17:57 Zaleplon (Sonata) 10 mg PO QPM KANDICE Stop: 05/29/19 20:59 Last Admin: 04/30/19 21:33 Dose: 10 mg Documented by: Mental Health & Subst Abuse Tx Psychiatrist Name of Psychiatrist: Gagan Ku - Dr. Alexander Psychiatrist's Date of Appointment with Psychiatrist: 05/06/19 Time of Appointment with Psychiatrist: 7:40 AM Psychiatric Appointment Comment: [address], [place] [address] Therapist Name of Therapist: Gagan Ku in past Container Finishing Inspector Name of Container Finishing Inspector: BRITTANY Sanchez Phone Number for Container Finishing Inspector: Case Management Appointment Comment: [address], [place] [address] Post Discharge Appointments Primary Care Physician Name Of Family Doctor: [facility] Time of Appointment with PCP: Follow up as needed. Provider Appointment Comment: Rob Maier, RICK Travis [id number] Contact Information Discharge Discharge Address: [address], [place] [address] (1) Depression Active/Remission status: currently active Depression Type: major depressive disorder Major depression episode severity: severe Major depression recurrence: recurrent Psychotic features: without psychotic features Qualified Code(s): F33.2 - Major depressive disorder, recurrent severe without psychotic features
[2019-05-01] MEDS ORDERED: HYDROCORTISONE HC 2.5% CRM 30GM TUBE EXT PRN (19:01)
[2019-05-01] MEDS: MIRTAZAPINE SOLTAB 15 MG PO SCH (22:14)
[2019-05-01] MEDS: LITHIUM CARBONATE 300 MG TAB PO SCH (22:17)
[2019-05-01] MEDS: ZALEPLON 5 MG CAPSULE PO SCH (22:26)
[2019-05-02] MEDS: clonazePAM 0.5 MG TAB PO PRN ×2 (03:01→20:33)
[2019-05-02] MEDS: FLUTICASONE/SALMETEROL 250/50 (ADVAIR) 14 PUFF/1 INHALER INH SCH ×2 (09:09→20:34)
[2019-05-02] MEDS: FLUTICASONE PROPIONATE NA SPR 16 GM BTL SCH (09:10)
[2019-05-02] MEDS: LORATADINE 10 MG TAB PO SCH (09:10)
[2019-05-02] MEDS: AMLODIPINE BESYLATE 5 MG TAB PO SCH (09:10)
[2019-05-02] MEDS: PATIENT'S OWN CONTROLLED MED PO SCH (09:11)
[2019-05-02] MEDS: METHYLPHENIDATE HCL PO SCH (09:11)
[2019-05-02] MEDS ORDERED: clonazePAM 0.5 MG TAB PO PRN (11:08)
[2019-05-02 13:03] LABS: Appearance Urine Clear (Clear); Bacteria Urine Automated Negative (Negative); Bilirubin Urine Negative (Negative); Blood Urine Negative (Negative); Cast Urine Automated 0 /lpf (0-5); Color Urine Yellow; Epithelial Cell Urine Auto 0-5 /lpf (0-5); Glucose Urine UA Negative (Negative); Ketones Urine Negative (Negative); Leukocyte Esterase Urine Trace (Negative); Nitrite Urine Negative (Negative); Protein Urine Negative (Negative); RBC Urine Automated 0-4 /hpf (0-4); Specific Gravity Urine 1.013 (1.000-1.030); Urobilinogen Urine Negative (Negative)
--- NOTE | 2019-05-02 18:33 | Psychiatric Progress Note ---
Date of Service May 02, 2019 Impression / Recommendations Impression 48-year-old single male with a history of recurrent depression, dysthymic disorder, and generalized anxiety disorder who symptoms have been ongoing for > 1 year with acute worsening over the past month in the context of starting a new job and multiple psychosocial stressors. He is admitted on an involuntary 302 commitment after being seen by his outpatient psychiatrist yesterday and endorsing worsening mood and anxiety with suicidal thoughts and thoughts to harm others. On admission, he reported severe restlessness, which was also occurring his doctor's office the day prior to admission. There may be an element of discontinuation as his Rexulti he is nonformulary, and he was therefore unable to receive the medication. Patient's ability to effectively communicate has significantly improved since yesterday, but there is concern for significant regression after discharge - given his long-standing history of symptoms. ECT would still be a reasonably treatment option for him, and can be discussed f montserrat. He is severely depressed and at high risk for suicide if discharged at this time. No criteria to pursue 303 involuntary commitment, will continue to monitor mood and offer that patient sign in if treatment is recommended beyond the length of his 302. Patient is having severe anxiety concerns worsening his presentation does find that Klonopin helps alleviate this to a more manageable level he is working through the psychosocial stressors that are bringing out this more severe anxiety. He has ambivalence about clonazepam but is open to utilizing it in a more constructive manner at this time and we decided to adjust clonazepam to 0.5 mg each morning scheduled with room for a second dose of it on a as needed basis if needed somewhere along the course of the day (1) Suicidal ideation: Every 15 minute checks for safety. Continue hospitalization on an involuntary commitment. This expires on Saturday05/04/2019, and we will need to continue to gather information toward the need for ongoing treatment. 05/01 - Denies SI today, but unable to convincingly contract for safety - Ensure consistency of mood and resolution of SI prior to discharge (2) Depression: Continue mirtazapine 45 mg at bedtime. Concerta is ; unclear if this is for ADHD or depression (patient states he does not know if he is ever been diagnosed with ADHD, and I do not see it in his outpatient records). Rexulti he is nonformulary and the patient states he has no one to him, so we will explore ways to get samples from the outpatient clinic. In the meantime, we will give a one-time dose of fluoxetine 20 mg in case some of his restlessness is due to discontinue -Coordinate care with Dr. Alexander to explore other treatment options. As above encouraged him to consider ECT, which she was unwilling to do at this time. -Explore options for family meeting. Patient currently stating he has no supports. -Coordinate care with Russell BRYANT. -Encourage participation in groups and therapy, work on healthy coping skills and discharge safety plan. 05/01 - [place] 300mg qHS was initiated following initial assessment yesterday, will continue at current dose. Continue mirtazapine 45mg and Concerta 54mg - friend was not able to locate Michael to bring in for administration of non- formulary medication - Continue to educate on potential for ECT - Coordinate care with case loader operator - Encourage participation in group and recreational therapy 05/02 reviewed ECT, TMS and esketamine as treatment options given his treatment resistant depression with pt wary none of these options might be practical for him at this time. -processed financial and work stressors and how adding to his anxiety and depression (3) Generalized anxiety disorder: Continue home dose of clonazepam 0.5 mg daily as needed, and offer hydroxyzine as needed as well. 05/01 - Continue as above - anxiety significantly improved today - If anxiety is exacerbated, consider having clonazepam available BID prn for management of symptoms 05/02 changed clonazepam to 0.5mg am and 0.5mg prn po qday for severe anxiety (4) Asthma: Continue loratadine, Flonase, and inhaler. 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 Chief Complaint "was quite severely anxious and klonopin prn dose help take the edge off but wary of not having further access to it again today". Review of Systems Sleep Information Total Hours of Sleep: 5.25 Sleep Comments: Alfonso was up early reading. Meal Information Percent Meal Consumed - Breakfast: 100 Percent Meal Consumed - Lunch: 100 Percent Meal Consumed - Dinner: 100 Nutrition Comment: per meal record Subjective Subjective Patient was seen & assessed and interval progress reviewed with nursing and social work. Patient shared about his anxiety concerns And how severely anxious he has beenHe finds Klonopin as alleviating his anxiety to a more manageable level but has some ambivalence towards taking in general and also wary about having access to only 1 dose a day since he gets nervous about not having room for second dose if it flares up and thus feels conflicted about letting himself take it before too much of the day has passedHis last dose was around 3 AM this morning and thus he is wary about not having another potential dose for rest of today Of note he had recently been taking 0.25 mg at the time with trying to take it twice up to twice a day to help settle his anxiety that has been much worse during the past to this he was taking 8.5 mg dose and only occasionally or even sporadically. It appears that 1 of his main reasons for his anxiety being so worse lately is that he is finding his new job is not manageable for him and not sure if he would really be able to continue working there. He had previously worked at [employer] but found that the work enicroment was not good for his back concerns. Additionally his new job pays a lot better as well He is having severe financial stress However he is wondering about going back to [facility] since he does not feel his current job is doable for him although he is not really feeling that [employer] would be a good choice for him either. He does not think that Concerta reasons for anxiety. He wonders if he was doing worse as he was on resulting prior to this admission. He denied suicidal thinking today. He denies any manic symptoms Or psychotic symptoms Physical Exam Psychiatric Orientation: alert, oriented x 3 and cooperative (timid, but pleasant) Apperance: appropriately dressed (casually, in long-sleeve sweater and khaki pants), appropriately groomed, + disheveled and appeared stated age Eye Contact: good eye contact Motor Behavior: steady gait and station and no abnormal motor movements (observed while laying in bed, had been actively reading) Speech: normal rate/rhythm/volume of speech (monotone, spontaneous) Affect: + depressed affect, + anxious affect (mildly, significantly reduced from observations yesterday) and mood congruent with affect Mood: + depressed mood (but states "significantly better today than yesterday") and + anxious mood Thought Process: goal directed thought process, clear/coherent thought process and thought association intact Thought Content: + preoccupation, + cognitive distortions, reality based without delusions, + hopelessness (intermittently) and + worthlessness Suicidal Thoughts: denies suicidal thoughts (at present) and denies suicidal intent Homicidal Thoughts: denies homicidal thoughts Hallucinations: no auditory hallucinations and no visual hallucinations Cognition: attention grossly intact and language grossly intact Estimated Intelligence: consistent with education level Insight: + fair insight Judgement: + fair judgement Vital Signs (Past 24 Hours) Last Vital Signs Temp 36.6 C 05/02/19 06:00 Pulse 87 05/02/19 06:44 Resp 18 05/02/19 06:00 BP 129/92 05/02/19 06:44 Pulse Ox 96 04/29/19 19:02 Results & Data Laboratory Results Laboratory Results - last 24 hr 05/02/19 12:35 Urine Color Yellow Urine Appearance Clear Urine pH 6.0 Ur Specific [place] 1.013 Urine Protein Negative Urine Glucose (UA) Negative Urine Ketones Negative Urine Blood Negative Urine Nitrite Negative Urine Bilirubin Negative Urine Urobilinogen Negative Ur Leukocyte Esterase Trace H Urine WBC (Auto) 1-5 Urine RBC (Auto) 0-4 U Hyaline Cast (Auto) 0 U Epithel Cells (Auto) 0-5 Urine Bacteria (Auto) Negative Current Inpatient Medications Current Inpatient Medications: Current Inpatient Medications Acetaminophen (Tylenol) 650 mg PO Q4H PRN PRN Reason: Headache or Minor Fever Stop: 05/29/19 17:57 Last Admin: 04/29/19 20:32 Dose: 650 mg Documented by: Al Hydrox/Mg Hydrox/Simethicone (Maalox) 30 ml PO Q4H PRN PRN Reason: GI Upset Stop: 05/29/19 17:57 Amlodipine Besylate (Norvasc) 2.5 mg PO DAILY KANDICE Stop: 05/30/19 08:59 Last Admin: 05/02/19 09:10 Dose: 2.5 mg Documented by: Bismuth Subsalicylate (Kaopectate) 15 ml PO PRN PRN PRN Reason: Loose Stool Stop: 05/29/19 17:57 Clonazepam (Klonopin) 0.5 mg PO DAILY PRN PRN Reason: Anxiety Stop: 05/29/19 17:58 Last Admin: 05/02/19 03:01 Dose: 0.5 mg Documented by: Clonazepam (Klonopin) 0.5 mg PO DAILY KANDICE Stop: 06/02/19 08:59 Clonazepam (Klonopin) 0.5 mg PO ONE PRN PRN Reason: Anxiety Stop: 05/02/19 23:59 Fluticasone Propionate (Flonase) 2 sprays NA DAILY KANDICE Stop: 05/30/19 08:59 Last Admin: 05/02/19 09:10 Dose: 2 sprays Documented by: Hydrocortisone (Proctozone Hc 2.5%) 1 appln EXT TID PRN PRN Reason: Hemorrhoids Stop: 05/31/19 19:00 Hydroxyzine HCl (Vistaril) 50 mg PO HSZ PRN PRN Reason: insomnia Stop: 05/29/19 18:21 Last Admin: 05/01/19 23:24 Dose: 50 mg Documented by: Hydroxyzine HCl (Vistaril) 25 mg PO Q4H PRN PRN Reason: Anxiety Stop: 05/29/19 17:57 Last Admin: 04/30/19 06:34 Dose: 25 mg Documented by: Meriden Carbonate (Meriden Carbonate) 300 mg PO HS KANDICE Stop: 05/30/19 21:59 Last Admin: 05/01/19 22:17 Dose: 300 mg Documented by: Loratadine (Claritin) 10 mg PO DAILY KANDICE Stop: 05/30/19 08:59 Last Admin: 05/02/19 09:10 Dose: 10 mg Documented by: Magnesium Hydroxide (Milk Of Magnesia) 30 ml PO DAILY PRN PRN Reason: Constipation Stop: 05/29/19 17:57 Methylphenidate HCl (Concerta) 1 ea PO DAILY KANDICE Stop: 05/31/19 08:59 Last Admin: 05/02/19 09:11 Dose: 1 ea Documented by: Mirtazapine (Remeron Solutab) 45 mg PO QPM KANDICE Stop: 05/29/19 20:59 Last Admin: 05/01/19 22:14 Dose: 45 mg Documented by: Miscellaneous (Order Awaiting Action) 1 ea N/A QS KANDICE Stop: 05/30/19 00:00 Last Admin: 04/30/19 10:54 Dose: Not Given Documented by: Non-Formulary Medication (Patient's Own Controlled Med) 1 ea PO DAILY KANDICE Stop: 05/15/19 08:59 Last Admin: 05/02/19 09:11 Dose: Not Given Documented by: Fluticasone/Salmeterol (Advair Diskus 250/50) 1 puffs INH BID KANDICE Stop: 05/29/19 20:59 Last Admin: 05/02/19 09:09 Dose: 1 puffs Documented by: Sodium Chloride ([place]atte Nasal) 1 - 2 sprays NA PRN PRN PRN Reason: Nasal Dryness/Congestion Stop: 05/29/19 17:57 Zaleplon (Sonata) 10 mg PO QPM KANDICE Stop: 05/29/19 20:59 Last Admin: 05/01/19 22:26 Dose: 10 mg Documented by: Mental Health & Subst Abuse Tx Psychiatrist Name of Psychiatrist: Gagan Alexander Psychiatrist's Date of Appointment with Psychiatrist: 05/06/19 Time of Appointment with Psychiatrist: 7:40 AM Psychiatric Appointment Comment: [address], [place] [address] Therapist Name of Therapist: Gagan Ku Therapist's Therapy Appointment Comment: [address], [place] [address] Dental Mechanic Name of Dental Mechanic: BRITTANY Sanchez Phone Number for Dental Mechanic: Case Management Appointment Comment: Will continue to see you Tuesdays at 7:45 a.m. Post Discharge Appointments Primary Care Physician Name Of Family Doctor: [facility] Time of Appointment with PCP: Follow up as needed. Provider Appointment Comment: [place] [id number] Contact Information Discharge Discharge Address: [address], [place] [address] (1) Depression Active/Remission status: currently active Depression Type: major depressive disorder Major depression episode severity: severe Major depression recurre nce: recurrent Psychotic features: without psychotic features Qualified Code(s): F33.2 - Major depressive disorder, recurrent severe without psychotic features
[2019-05-02] MEDS: MIRTAZAPINE SOLTAB 15 MG PO SCH (20:34)
[2019-05-02] MEDS: LITHIUM CARBONATE 300 MG TAB PO SCH (20:34)
[2019-05-02] MEDS: ZALEPLON 5 MG CAPSULE PO SCH (21:47)
[2019-05-03] MEDS: AMLODIPINE BESYLATE 5 MG TAB PO SCH (08:47)
[2019-05-03] MEDS: LORATADINE 10 MG TAB PO SCH (08:47)
[2019-05-03] MEDS: FLUTICASONE/SALMETEROL 250/50 (ADVAIR) 14 PUFF/1 INHALER INH SCH ×2 (08:47→21:30)
[2019-05-03] MEDS: FLUTICASONE PROPIONATE NA SPR 16 GM BTL SCH (08:48)
[2019-05-03] MEDS: METHYLPHENIDATE HCL PO SCH (08:48)
[2019-05-03] MEDS: PATIENT'S OWN CONTROLLED MED PO SCH (08:49)
[2019-05-03] MEDS: clonazePAM 0.5 MG TAB PO SCH (08:51)
[2019-05-03] MEDS: ACETAMINOPHEN 325 MG TAB PO PRN (10:40)
--- NOTE | 2019-05-03 17:30 | Psychiatric Progress Note ---
Date of Service May 03, 2019 Impression / Recommendations Impression 48-year-old single male with a history of recurrent depression, dysthymic disorder, and generalized anxiety disorder who symptoms have been ongoing for > 1 year with acute worsening over the past month in the context of starting a new job and multiple psychosocial stressors. He is admitted on an involuntary 302 commitment after being seen by his outpatient psychiatrist yesterday and endorsing worsening mood and anxiety with suicidal thoughts and thoughts to harm others. On admission, he reported severe restlessness, which was also occurring his doctor's office the day prior to admission. There may be an element of discontinuation as his Rexulti he is nonformulary, and he was therefore unable to receive the medication. Patient's ability to effectively communicate has significantly improved since yesterday, but there is concern for significant regression after discharge - given his long-standing history of symptoms. ECT would still be a reasonably treatment option for him, and can be discussed f montserrat. He is severely depressed and at high risk for suicide if discharged at this time. No criteria to pursue 303 involuntary commitment, will continue to monitor mood and offer that patient sign in if treatment is recommended beyond the length of his 302. Patients anxiety is reducing as he has made a decision about seking to resume work at [employer] and accepting leting go of this more high paying job that is less phsyical demanding. He is also likely obtaining some releif of his anxiety from the klonopin doses. He is preparing for discharge with ambivalance about how soon for it to be that can go back and forth on his preference. (1) Suicidal ideation: Every 15 minute checks for safety. Continue hospitalization on an involuntary commitment. This expires on Saturday05/04/2019, and we will need to continue to gather information toward the need for ongoing treatment. 05/01 - Denies SI today, but unable to convincingly contract for safety - Ensure consistency of mood and resolution of SI prior to discharge (2) Depression: Continue mirtazapine 45 mg at bedtime. Concerta is ; unclear if this is for ADHD or depression (patient states he does not know if he is ever been diagnosed with ADHD, and I do not see it in his outpatient records). Rexulti he is nonformulary and the patient states he has no one to him, so we will explore ways to get samples from the outpatient clinic. In the meantime, we will give a one-time dose of fluoxetine 20 mg in case some of his restlessness is due to discontinue -Coordinate care with Dr. Alexander to explore other treatment options. As above encouraged him to consider ECT, which she was unwilling to do at this time. -Explore options for family meeting. Patient currently stating he has no supports. -Coordinate care with Russell BRYANT. -Encourage participation in groups and therapy, work on healthy coping skills and discharge safety plan. 05/01 - [place] 300mg qHS was initiated following initial assessment yesterday, will continue at current dose. Continue mirtazapine 45mg and Concerta 54mg - friend was not able to locate Michael to bring in for administration of non- formulary medication - Continue to educate on potential for ECT - Coordinate care with dependency case manager - Encourage participation in group and recreational therapy 05/02 reviewed ECT, TMS and esketamine as treatment options given his treatment resistant depression with pt wary none of these options might be practical for him at this time. -processed financial and work stressors and how adding to his anxiety and depression 05/03 processing his decision about his aim to resume work at [employer] if able to (3) Generalized anxiety disorder: Continue home dose of clonazepam 0.5 mg daily as needed, and offer hydroxyzine as needed as well. 05/01 - Continue as above - anxiety significantly improved today - If anxiety is exacerbated, consider having clonazepam available BID prn for management of symptoms 05/02 changed clonazepam to 0.5mg am scheduled and 0.5mg prn po qday for severe anxiety (4) Asthma: Continue loratadine, Flonase, and inhaler. 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 Chief Complaint "not as anxious today, not as depressed ". Review of Systems Sleep Information Total Hours of Sleep: 6.5 Sleep Comments: Alfonso was up early reading. Meal Information Percent Meal Consumed - Breakfast: 100 Percent Meal Consumed - Lunch: 100 Percent Meal Consumed - Dinner: 100 Nutrition Comment: per meal record Subjective Subjective Patient was seen & assessed and interval progress reviewed with nursing and social work. Patient shared how has a family meeting with his mother and how it went okay but was tough for him. He has made a decision to contact [facility] tomorrow to see about resuming work there and seems to have made up his mind that despite the financial incentive to work his new job he is aiming to leave it and aim to work at [employer] again. He is wondering how the phone call will go though. He did take the as needed dose of Klonopin yesterday evening as his anxiety was waxing and waning in severity over the day and he was expecting it to worsen into the night and wanted to help curb t so could sleep ok. He reports his mood is less depressed and less anxious today and he is noticing some improvement and is wondering about having discharge shortly. Physical Exam Psychiatric Orientation: alert, oriented x 3 and cooperative (timid, but pleasant) Apperance: appropriately dressed (casually, in long-sleeve sweater and khaki pants), appropriately groomed, + disheveled and appeared stated age Eye Contact: good eye contact and + poor eye contact Motor Behavior: steady gait and station and no abnormal motor movements (observed while laying in bed, had been actively reading) Speech: normal rate/rhythm/volume of speech (monotone, spontaneous) Affect: mood congruent with affect mood and affect both notably calmer and less depressed today Thought Process: goal directed thought process, clear/coherent thought process and thought association intact Thought Content: + cognitive distortions, reality based without delusions and + guilt; no worthlessness Suicidal Thoughts: denies suicidal thoughts (at present) and denies suicidal intent Homicidal Thoughts: denies homicidal thoughts Hallucinations: no auditory hallucinations and no visual hallucinations Cognition: attention grossly intact and language grossly intact Estimated Intelligence: consistent with education level Insight: + fair insight Judgement: + fair judgement Vital Signs (Past 24 Hours) Last Vital Signs Temp 36.6 C 05/03/19 06:00 Pulse 94 H 05/03/19 06:26 Resp 18 05/03/19 06:00 BP 130/82 05/03/19 06:26 Pulse Ox 96 04/29/19 19:02 Results & Data Current Inpatient Medications Current Inpatient Medications: Current Inpatient Medications Acetaminophen (Tylenol) 650 mg PO Q4H PRN PRN Reason: Headache or Minor Fever Stop: 05/29/19 17:57 Last Admin: 05/03/19 10:40 Dose: 650 mg Documented by: Al Hydrox/Mg Hydrox/Simethicone (Maalox) 30 ml PO Q4H PRN PRN Reason: GI Upset Stop: 05/29/19 17:57 Amlodipine Besylate (Norvasc) 2.5 mg PO DAILY [facility] Stop: 05/30/19 08:59 Last Admin: 05/03/19 08:47 Dose: 2.5 mg Documented by: Bismuth Subsalicylate (Kaopectate) 15 ml PO PRN PRN PRN Reason: Loose Stool Stop: 05/29/19 17:57 Clonazepam (Klonopin) 0.5 mg PO DAILY PRN PRN Reason: Anxiety Stop: 05/29/19 17:58 Last Admin: 05/02/19 20:33 Dose: 0.5 mg Documented by: Clonazepam (Klonopin) 0.5 mg PO DAILY KANDICE Stop: 06/02/19 08:59 Last Admin: 05/03/19 08:51 Dose: 0.5 mg Documented by: Fluticasone Propionate (Flonase) 2 sprays NA DAILY KANDICE Stop: 05/30/19 08:59 Last Admin: 05/03/19 08:48 Dose: 2 sprays Documented by: Hydrocortisone (Proctozone Hc 2.5%) 1 appln EXT TID PRN PRN Reason: Hemorrhoids Stop: 05/31/19 19:00 Hydroxyzine HCl (Vistaril) 50 mg PO HSZ PRN PRN Reason: insomnia Stop: 05/29/19 18:21 Last Admin: 05/01/19 23:24 Dose: 50 mg Documented by: Hydroxyzine HCl (Vistaril) 25 mg PO Q4H PRN PRN Reason: Anxiety Stop: 05/29/19 17:57 Last Admin: 04/30/19 06:34 Dose: 25 mg Documented by: [place] Carbonate ([place] Carbonate) 300 mg PO HS KANDICE Stop: 05/30/19 21:59 Last Admin: 05/02/19 20:34 Dose: 300 mg Documented by: Loratadine (Claritin) 10 mg PO DAILY KANDICE Stop: 05/30/19 08:59 Last Admin: 05/03/19 08:47 Dose: 10 mg Documented by: Magnesium Hydroxide (Milk Of Magnesia) 30 ml PO DAILY PRN PRN Reason: Constipation Stop: 05/29/19 17:57 Methylphenidate HCl (Concerta) 1 ea PO DAILY KANDICE Stop: 05/31/19 08:59 Last Admin: 05/03/19 08:48 Dose: 1 ea Documented by: Mirtazapine (Remeron Solutab) 45 mg PO QPM KANDICE Stop: 05/29/19 20:59 Last Admin: 05/02/19 20:34 Dose: 45 mg Documented by: Miscellaneous (Order Awaiting Action) 1 ea N/A QS KANDICE Stop: 05/30/19 00:00 Last Admin: 04/30/19 10:54 Dose: Not Given Documented by: Non-Formulary Medication (Patient's Own Controlled Med) 1 ea PO DAILY KANDICE Stop: 05/15/19 08:59 Last Admin: 05/03/19 08:49 Dose: Not Given Documented by: Fluticasone/Salmeterol (Advair Diskus 250/50) 1 puffs INH BID KANDICE Stop: 05/29/19 20:59 Last Admin: 05/03/19 08:47 Dose: 1 puffs Documented by: Sodium Chloride (Alvo Nasal) 1 - 2 sprays NA PRN PRN PRN Reason: Nasal Dryness/Congestion Stop: 05/29/19 17:57 Zaleplon (Sonata) 10 mg PO QPM KANDICE Stop: 05/29/19 20:59 Last Admin: 05/02/19 21:47 Dose: 10 mg Documented by: Mental Health & Subst Abuse Tx Psychiatrist Name of Psychiatrist: [facility] - Dr. Alexander Psychiatrist's Date of Appointment with Psychiatrist: 05/06/19 Time of Appointment with Psychiatrist: 7:40 AM Psychiatric Appointment Comment: [address], [place] [address] Therapist Name of Therapist: [facility] Desk Therapist's Therapy Appointment Comment: [address], [place] [address] Diver Tender Name of Diver Tender: BRITTANY Sanchez Phone Number for Diver Tender: Case Management Appointment Comment: Will continue to see you Tuesdays at 7:45 a.m. Post Discharge Appointments Primary Care Physician Name Of Family Doctor: [facility] Time of Appointment with PCP: Follow up as needed. Provider Appointment Comment: [address], [place] [phone] Contact Information Discharge Discharge Address: [address], [place] [address] (1) Depression Active/Remission status: currently active Depression Type: major depressive disorder Major depression episode severity: severe Major depression rec urrence: recurrent Psychotic features: without psychotic features Qualified Code(s): F33.2 - Major depressive disorder, recurrent severe without psychotic features
[2019-05-03] MEDS: clonazePAM 0.5 MG TAB PO PRN (18:29)
[2019-05-03] MEDS: MIRTAZAPINE SOLTAB 15 MG PO SCH (21:30)
[2019-05-03] MEDS: ZALEPLON 5 MG CAPSULE PO SCH (21:30)
[2019-05-03] MEDS: LITHIUM CARBONATE 300 MG TAB PO SCH (21:31)
[2019-05-04] MEDS: FLUTICASONE/SALMETEROL 250/50 (ADVAIR) 14 PUFF/1 INHALER INH SCH ×2 (09:08→21:04)
[2019-05-04] MEDS: FLUTICASONE PROPIONATE NA SPR 16 GM BTL SCH (09:09)
[2019-05-04] MEDS: AMLODIPINE BESYLATE 5 MG TAB PO SCH (09:09)
[2019-05-04] MEDS: LORATADINE 10 MG TAB PO SCH (09:09)
[2019-05-04] MEDS: METHYLPHENIDATE HCL PO SCH (09:13)
[2019-05-04] MEDS: clonazePAM 0.5 MG TAB PO SCH (09:13)
[2019-05-04] MEDS: PATIENT'S OWN CONTROLLED MED PO SCH (09:14)
--- NOTE | 2019-05-04 09:57 | Psychiatric Progress Note ---
Date of Service May 04, 2019 Impression / Recommendations Impression 48-year-old single male with a history of recurrent depression, dysthymic disorder, and generalized anxiety disorder who symptoms have been ongoing for > 1 year with acute worsening over the past month in the context of starting a new job and multiple psychosocial stressors. He is admitted on an involuntary 302 commitment after being seen by his outpatient psychiatrist yesterday and endorsing worsening mood and anxiety with suicidal thoughts and thoughts to harm others. On admission, he reported severe restlessness, which was also occurring his doctor's office the day prior to admission. There may be an element of discontinuation as his Rexulti is nonformulary, and he was therefore unable to receive the medication. The patient's condition continues to be variable with today being a difficult day, and there remains concern for significant regression after discharge - given his long-standing history of symptoms. ECT would still be a reasonably treatment option for him, and can be discussed furth er. He is severely depressed and at elevated risk of potential self-harm when compared to the general population. No criteria to pursue 303 involuntary commitment, patient was offered to sign in voluntarily to complete his recommended treatment. It is being recommended that the patient remain in treatment for another 1-2 days to ensure the stress related to his work situation is reasonably mitigated prior to discharge. (1) Suicidal ideation: Every 15 minute checks for safety. Continue hospitalization on an involuntary commitment. This expires on Saturday05/04/2019, and we will need to continue to gather information toward the need for ongoing treatment. 05/01 - Denies SI today, but unable to convincingly contract for safety - Ensure consistency of mood and resolution of SI prior to discharge 05/04 - Denies SI today, but reports "flashes" of SI yesterday with plan, but not intent - States these thoughts are similar to those experienced prior to admission (2) Depression: Continue mirtazapine 45 mg at bedtime. Concerta is ; unclear if this is for ADHD or depression (patient states he does not know if he is ever been diagnosed with ADHD, and I do not see it in his outpatient records). Rexulti he is nonformulary and the patient states he has no one to him, so we will explore ways to get samples from the outpatient clinic. In the meantime, we will give a one-time dose of fluoxetine 20 mg in case some of his restlessness is due to discontinue -Coordinate care with Dr. Alexander to explore other treatment options. As above encouraged him to consider ECT, which she was unwilling to do at this time. -Explore options for family meeting. Patient currently stating he has no supports. -Coordinate care with [facility]. -Encourage participation in groups and therapy, work on healthy coping skills and discharge safety plan. 05/01 - Rochester 300mg qHS was initiated following initial assessment yesterday, will continue at current dose. Continue mirtazapine 45mg and Concerta 54mg - friend was not able to locate Michael to bring in for administration of non- formulary medication - Continue to educate on potential for ECT - Coordinate care with case picker - Encourage participation in group and recreational therapy 05/02 reviewed ECT, TMS and esketamine as treatment options given his treatment resistant depression with pt wary none of these options might be practical for him at this time. -processed financial and work stressors and how adding to his a nxiety and depression 05/03 processing his decision about his aim to resume work at [employer] if able to 05/04 - Continue current medication regimen - pt to make phone calls to employers today to tease out his work situation - Continue to engage patient in group programming - Processing with patient 1:1 regarding decisions related to work (3) Generalized anxiety disorder: Continue home dose of clonazepam 0.5 mg daily as needed, and offer hydroxyzine as needed as well. 05/01 - Continue as above - anxiety significantly improved today - If anxiety is exacerbated, consider having clonazepam available BID prn for management of symptoms 05/02 changed clonazepam to 0.5mg am scheduled and 0.5mg prn po qday for severe anxiety (4) Asthma: Continue loratadine, Flonase, and inhaler. 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 Chief Complaint "I'm kind of agitated today." Review of Systems Notes Constitutional: denied Cardiovascular: denied Respiratory: denied Gastrointestinal: denied Neurological: denied Psychiatric: denies symptoms other than stated above Total of at least 10 systems reviewed, pertinent positives as above and in HPI. Sleep Information Total Hours of Sleep: 7 Sleep Comments: Alfonso was up early reading. Meal Information Percent Meal Consumed - Breakfast: 100 Percent Meal Consumed - Lunch: 100 Percent Meal Consumed - Dinner: 100 Nutrition Comment: per meal record Subjective Subjective Patient was seen & assessed and interval progress reviewed with treatment team. Staff reports the patient had a meeting with his mother over the weekend, who remains supportive. Patient did verbalize suicidal ideation over the weekend, and is reporting ongoing stress related to his job situation. Patient was seen today to assess progress since admission. He states that he is feeling "kind of agitated" today, reporting he is "stressed about the job issue." Patient recognizes that the great deal of his symptoms at admission was related to being unhappy and overwhelmed with working multiple jobs. He states he is planning to reach out to his part-time employer about the possibility of returning to work full-time. Patient states he is not sure about his plan after this phone call, especially if he is denied a full-time position. Patient states that he has been engaged in group programming; however, feels that he is not confident in using the coping strategies that have discussed in groups. Patient is able to recognize that "deep breathing, visualization, and distractions" would be helpful for him; however, he is concerned about being able to utilize them at home. Patient admits that he has been experiencing "flashes" of suicidal ideation yesterday. He describes these as "imagining myself taking pills, or setting a fire in my room." But he does not believe he would act on these thoughts. Patient does admit that he does not feel significantly better than he did when he was initially admitted. Patient denies suicidal ideation presently, and denies other needs or concerns at this time. We discussed the status of his 302 involuntary commitment, which expires this evening. Patient states he is planning to talk with his employer on the phone, and then decide whether he would be willing to sign in voluntarily to complete his treatment. Physical Exam Psychiatric Orientation: alert, oriented x 3 and cooperative Apperance: appropriately dressed and appropriately groomed Eye Contact: + poor eye contact (staring at ground for most of conversation) Motor Behavior: steady gait and station and no abnormal motor movements Speech: normal rate/rhythm/volume of speech (monotone, rather brief responses to questions) Affect: + depressed affect, + flat affect and mood congruent with affect Mood: + depressed mood and + anxious mood ("I'm kind of agitated" - implying more anxiety than true anger) Thought Process: goal directed thought process, clear/coherent thought process and thought association intact Thought Content: reality based without delusions and + hopelessness Suicidal Thoughts: denies suicidal thoughts (presently) admits to "flashes" last evening of "me taking pills or setting a fire in my room" - but denies feeling as though he would act on thoughts Homicidal Thoughts: denies homicidal thoughts Hallucinations: no auditory hallucinations and no visual hallucinations Cognition: attention grossly intact and language grossly intact Insight: + fair insight Judgement: + fair judgement Vital Signs (Past 24 Hours) Last Vital Signs Temp 36.4 C L 05/04/19 06:31 Pulse 85 05/04/19 06:32 Resp 18 05/04/19 06:31 BP 130/82 05/04/19 06:32 Pulse Ox 96 04/29/19 19:02 Results & Data Current Inpatient Medications Current Inpatient Medications: Current Inpatient Medications Acetaminophen (Tylenol) 650 mg PO Q4H PRN PRN Reason: Headache or Minor Fever Stop: 05/29/19 17:57 Last Admin: 05/03/19 10:40 Dose: 650 mg Documented by: Al Hydrox/Mg Hydrox/Simethicone (Maalox) 30 ml PO Q4H PRN PRN Reason: GI Upset Stop: 05/29/19 17:57 Amlodipine Besylate (Norvasc) 2.5 mg PO DAILY KANDICE Stop: 05/30/19 08:59 Last Admin: 05/04/19 09:09 Dose: 2.5 mg Documented by: Bismuth Subsalicylate (Kaopectate) 15 ml PO PRN PRN PRN Reason: Loose Stool Stop: 05/29/19 17:57 Clonazepam (Klonopin) 0.5 mg PO DAILY PRN PRN Reason: Anxiety Stop: 05/29/19 17:58 Last Admin: 05/03/19 18:29 Dose: 0.5 mg Documented by: Clonazepam (Klonopin) 0.5 mg PO DAILY KANDICE Stop: 06/02/19 08:59 Last Admin: 05/04/19 09:13 Dose: 0.5 mg Documented by: Fluticasone Propionate (Flonase) 2 sprays NA DAILY KANDICE Stop: 05/30/19 08:59 Last Admin: 05/04/19 09:09 Dose: 2 sprays Documented by: Hydrocortisone (Proctozone Hc 2.5%) 1 appln EXT TID PRN PRN Reason: Hemorrhoids Stop: 05/31/19 19:00 Hydroxyzine HCl (Vistaril) 50 mg PO HSZ PRN PRN Reason: insomnia Stop: 05/29/19 18:21 Last Admin: 05/01/19 23:24 Dose: 50 mg Documented by: Hydroxyzine HCl (Vistaril) 25 mg PO Q4H PRN PRN Reason: Anxiety Stop: 05/29/19 17:57 Last Admin: 04/30/19 06:34 Dose: 25 mg Documented by: [place] Carbonate ([place] Carbonate) 300 mg PO HS KANDICE Stop: 05/30/19 21:59 Last Admin: 05/03/19 21:31 Dose: 300 mg Documented by: Loratadine (Claritin) 10 mg PO DAILY KANDICE Stop: 05/30/19 08:59 Last Admin: 05/04/19 09:09 Dose: 10 mg Documented by: Magnesium Hydroxide (Milk Of Magnesia) 30 ml PO DAILY PRN PRN Reason: Constipation Stop: 05/29/19 17:57 Methylphenidate HCl (Concerta) 1 ea PO DAILY KANDICE Stop: 05/31/19 08:59 Last Admin: 05/04/19 09:13 Dose: 1 ea Documented by: Mirtazapine (Remeron Solutab) 45 mg PO QPM KANDICE Stop: 05/29/19 20:59 Last Admin: 05/03/19 21:30 Dose: 45 mg Documented by: Miscellaneous (Order Awaiting Action) 1 ea N/A QS KANDICE Stop: 05/30/19 00:00 Last Admin: 04/30/19 10:54 Dose: Not Given Documented by: Non-Formulary Medication (Patient's Own Controlled Med) 1 ea PO DAILY KANDICE Stop: 05/15/19 08:59 Last Admin: 05/04/19 09:14 Dose: Not Given Documented by: Fluticasone/Salmeterol (Advair Diskus 250/50) 1 puffs INH BID KANDICE Stop: 05/29/19 20:59 Last Admin: 05/04/19 09:08 Dose: 1 puffs Documented by: Sodium Chloride ([place] Nasal) 1 - 2 sprays NA PRN PRN PRN Reason: Nasal Dryness/Congestion Stop: 05/29/19 17:57 Zaleplon (Sonata) 10 mg PO QPM KANDICE Stop: 05/29/19 20:59 Last Admin: 05/03/19 21:30 Dose: 10 mg Documented by: Mental Health & Subst Abuse Tx Psychiatrist [facility]'s Date of Appointment with Psychiatrist: 05/06/19 Time of Appointment with Psychiatrist: 7:40 AM Psychiatric Appointment Comment: [address], [place] [address] Therapist Name of Therapist: [facility] Jamil Emery LCSW Therapist's Date of Therapist Appointment: 05/06/19 Time of Therapist Appointment: 11 a.m. Therapy Appointment Comment: [id number], [place] [address] Youth Liaison Officer Name of Youth Liaison Officer: BRITTANY Sanchez Phone Number for Youth Liaison Officer: Case Management Appointment Comment: Will continue to see you Tuesdays at 7:45 a.m. Post Discharge Appointments Primary Care Physician Name Of Family Doctor: [facility] Time of Appointment with PCP: Follow up as needed. Provider Appointment Comment: [address], [place] [id number] Contact Information Discharge Discharge Address: [address], [place] [address] (1) Depression Active/Remission status: currently active Depression Type: major depressive disorder Major depression episode severity: severe Major depression recurrenc e: recurrent Psychotic features: without psychotic features Qualified Code(s): F33.2 - Major depressive disorder, recurrent severe without psychotic features
[2019-05-04] MEDS: clonazePAM 0.5 MG TAB PO PRN (20:00)
[2019-05-04] MEDS: ZALEPLON 5 MG CAPSULE PO SCH (21:04)
[2019-05-04] MEDS: LITHIUM CARBONATE 300 MG TAB PO SCH (21:04)
[2019-05-04] MEDS: MIRTAZAPINE SOLTAB 15 MG PO SCH (21:04)
[2019-05-05 06:32] VITALS: BP 123/88; TEMP 97.7
[2019-05-05] MEDS: FLUTICASONE/SALMETEROL 250/50 (ADVAIR) 14 PUFF/1 INHALER INH SCH (08:19)
[2019-05-05] MEDS: LORATADINE 10 MG TAB PO SCH (08:19)
[2019-05-05] MEDS: METHYLPHENIDATE HCL PO SCH (08:20)
[2019-05-05] MEDS: FLUTICASONE PROPIONATE NA SPR 16 GM BTL SCH (08:20)
[2019-05-05] MEDS: clonazePAM 0.5 MG TAB PO SCH (08:21)
[2019-05-05] MEDS: AMLODIPINE BESYLATE 5 MG TAB PO SCH (08:21)
[2019-05-05] MEDS: PATIENT'S OWN CONTROLLED MED PO SCH (08:22)
--- NOTE | 2019-05-05 09:07 | Discharge Summary ---
Date of Service May 05, 2019 History of Present Illness The patient presented to the ER yesterday 03/29/2019 on referral from his outpatient psychiatrist, Dr. Alexander, after seeing her at the outpatient clinic. Review of her records: He has been seen monthly to twice a month for over a year for chronic depressive and anxiety symptoms. He has been on clonazepam, Concerta, and zaleplon for over a year, and was hospitalized at the [facility] 04/2018, where he was started on mirtazapine. About a year ago, venlafaxine was switched to bupropion, which was then switched to Rexulti about 4 months ago, and he initially reported improved mood. Rexulti and mirtazapine have recently been increased to target depression and anxiety. He has not been in therapy due to his work schedule, although it had been recommended, and has recently explored [facility] treatment at [place]. Over the summer, he was applying to new jobs as he did not like his job at [employer], but struggling to follow through on tasks due to depression. Mood has been worsening for the past month, reporting shame (because outpatient case manager had to help him clean his room) and loneliness. Last month, he got a new job at the [employer], and has been attending training 5 days a week, while continuing to work at [employer] on Saturdays. Despite this, he reported ongoing anxiety about his finances, and has been struggling with musculoskeletal back pain for which she is in physical therapy. He has been gaining weight, and reporting frequent bowel movements which he attributed to anxiety (preceded medication changes). He has been concerned about finances, as he will be losing his [employer] insurance at some point, and his new insurance has higher co-pays. Anxiety increased significantly with starting his new job, and he was using clonazepam once a daily with benefit. He has reported good compliance with medications. At his appointment yesterday, he reported worsening mood and anxiety, pacing and restlessness, and suicidal ideation. He said he had not tried to harm himself due to fear that he would not succeed, but could not identify any other reasons to go on living. He was fearful of going to the hospital that he did not want to miss work or lose his job and was worried about the cost. He endorsed hopelessness, helplessness, and worthlessness, and had been unable to engage in behavioral techniques for improving mood or anxiety. He felt unable to follow through on tasks that have been identified to increase his socialization or address his financial concerns, and denied substance abuse. He was ambivalent about hospitalization, but agreed to go to the ER, and Dr. Alexander completed a 302 petition. In the ER, he stated he felt worse than he ever had before, and endorsed suicidal thoughts and brief homicidal thoughts at times, but without a particular target. He reported restlessness and feeling uncomfortable, and had a prolonged bed search, during which she became impatient and asked to leave. He was ultimately placed on a 302 involuntary commitment. On my assessment, the patient reports mood has been depressed for >1 year, stating he never fully recovered after hospitalization a year ago. Mood worsened 3-4 weeks ago when he started a second job, and states he is "miserable" at both jobs. Reports restlessness, unable to sit still, low energy and motivation, "sad, bored, frustrated, and embarrassed." Has been more tearful, hopeless, and endorses anhedonia. Appetite "comes and goes," but denies changes in weight. Has been having more frequent and intense suicidal thoughts, describes "flashes popping into my head," including "stabbing myself, taking a bunch of pills, jumping off of something." Was hoping to transition to [employer] job, but now is not sure as he doesn't like it and doesn't know if he will be able to keep his job due to hospitalization and missing. He has been working at [employer] for "a long time," but was having worsening back pain, and looked for a new job as it pays more. He did not bring his medications in with him, and Rexulti and Concerta are nonformulary. He is upset that these are not available here and says "no one told me." He reports excessive worry, about many things, inability to control the worry, interference with sleep and concentration, and muscle tension. Denies panic attacks, manic and psychotic symptoms. He reports feeling uncomfortable and "fidgety," and hydroxyzine was helpful. Reports support from one friend and outpatient case manager. Physical Exam Psychiatric Orientation: alert, oriented x 3 and cooperative Apperance: appropriately dressed, appropriately groomed and appeared stated age Eye Contact: + fair eye contact Motor Behavior: steady gait and station and no abnormal motor movements Speech: normal rate/rhythm/volume of speech Affect is blunted, but improved from admission. Mood: + anxious mood "All right." Thought Process: goal directed thought process Thought Content: reality based without delusions Suicidal Thoughts: denies suicidal thoughts Homicidal Thoughts: denies homicidal thoughts Hallucinations: no auditory hallucinations and no visual hallucinations Cognition: recent memory grossly intact, attention grossly intact and language grossly intact Estimated Intelligence: consistent with education level Insight: + fair insight Judgement: + fair judgement Vital Signs (Past 24 Hours) Last Vital Signs Temp 36.5 C 05/05/19 06:31 Pulse 99 H 05/05/19 06:31 Resp 18 05/05/19 06:31 BP 123/88 05/05/19 06:31 Pulse Ox 96 04/29/19 19:02 Principal Diagnosis Dysthymic disorder Major depressive disorder, recurrent, severe without psychosis Generalized anxiety disorder Psychiatric Data The patient was hospitalized on our unit for 6 days. On admission, Deoni was held after discussion with his outpatient psychiatrist, due to concerns that the recent dose increase may have caused akathisia and contributed to his sense of restlessness. He agreed to a trial of lithium to target treatment resistant depression and suicidal ideation, and tolerated 300 mg at bedtime well. He was continued on his other home medications including mirtazapine, Concerta, and clonazepam. He reported improvement in mood and anxiety, and decreased suicidal thoughts over the course of his hospital stay. He attended and participated in groups, and talked about his stressors, primarily work and financial concerns. He struggled to identify ways that he address his stressors, but after much discussion, made the decision to quit his new job as he did not feel the benefits outweighed the drawbacks, stating concerns that he did not enjoy it, the work was isolating, and the health insurance had a very high deductible. He contacted his boss at [employer] and requested to return to full-time work there. Care was coordinated with his blended outpatient case manager, who was to contact the patient on the unit the day of discharge. The patient reported chronic financial concerns and stated that he does not follow a budget and tends to spend a lot of money on food costs. He was willing to work on this with his BC as an outpatient. He agreed to recommendations for therapy, and was referred to Mildred Emery for individual psychotherapy. Other treatment options for her treatment resistant depression were reviewed, including ECT, TMS, and esketamine; he did not feel that any of these were practical for him at this time. He signed in for voluntary treatment at the conclusion of his 302 involuntary commitment. Day of Discharge Assessment Staff report the patient is attending and participating in groups, denying suicidal thoughts, and has identified areas to work after discharge, including increased socialization. He also stated he called his brother yesterday and told him for the first time about his mental health struggles. He stated that if he had thoughts of harming himself, he felt he would be able to control them. His sleep has improved, and he has slept 7 hours the last 2 nights. On my assessment, he reports mood is "all right," but admits that he is "kind of tense about going back to my situation." He continues to worry about work and his finances, but is hopeful that his plan to return to [employer] full-time will work out. He already spoke with his boss there, and states that he will be on the schedule over the holiday next week, and in the meantime plans to continue at [facility]. He denies suicidal thoughts over the past 2 days, and prior to that they had decreased to "flashes" when he was ruminating on his stressors, specifically returning to work. He states that when he stops went through his head, he "immediately thought 'no, that's not what I want to do.'" He is able to review his safety plan, and denies acute safety concerns with discharge. He is able to talk through the pros and cons of his new job, and his decision not to continue there. He says he had been looking for a new job off and on for the past year, and plans to continue to look for something that would allow for greater financial stability. He also states that he does not follow a budget, and tends to spend too much on food costs. He is willing to work on this with his outpatient case manager, whom he will be meeting with today. He denies side effects to the lithium, and states restlessness that was present on admission has resolved. Transition of Care Transition Of Care Record: was reviewed with the patient Advance Directives Advance Directives Information Provided: Yes Advance Directives: Yes Mental Health Advance Directive: No Advance Directives on File: No Living Will: No Power of Hand Rounder: No Advance Directives Reason:: Declines as Mental Health Visit. Risk Factors Assessment Risk factors were mitigated by admission to the inpatient unit, adjusting medications to target mood and anxiety symptoms, coordination of care with his outpatient providers, referring him for additional outpatient services (psychotherapy), involving him in groups and therapy, and working on healthy coping skills and a discharge safety plan. Family meeting was recommended, but he declined. He has demonstrated improvement in mood and anxiety symptoms, is eating and sleeping well, tending to ADLs independently, and actively participating in treatment. He is denying suicidal thoughts, and able to review his discharge safety plan. He is requesting discharge, and is he is no longer at acute risk of harm to himself, can be managed as an outpatient at this time. He is not at elevated risk for harm to others. 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 Relationships: No Supportive Family: No Good Rapport with Provider: Yes Tobacco Cessation at Discharge Tobacco Cessation Medication Prescribed at Discharge: Not Applicable/Non-Smoker Total Time Total Time Spent: Greater Than 30 Minutes Total Time Includes: Examination of the patient, Discharge Planning, Medication Reconciliation and Communication with other providers Discharge Data Lab Results 04/29/19 04/29/19 04/29/19 09:20 09:20 09:29 WBC 7.01 RBC 5.10 Hgb 15.2 Hct 43.7 MCV 85.7 MCH 29.8 MCHC 34.8 RDW Std Deviation 37.8 RDW Coeff of Ari 12.0 Plt Count 240 MPV 9.1 Immature Gran % (Auto) 0.1 Neut % (Auto) 80.7 Lymph % (Auto) 11.6 [place] % (Auto) 6.3 Eos % (Auto) 1.0 Baso % (Auto) 0.3 Immature Gran # (Auto) 0.01 Neut # (Auto) 5.66 Lymph # (Auto) 0.81 L [place] # (Auto) 0.44 Eos # (Auto) 0.07 Baso # (Auto) 0.02 Sodium Potassium Chloride Carbon Dioxide Anion Gap BUN Creatinine Est Cr Clr Drug Dosing Est GFR ( Amer) Est GFR (Non-Af Amer) BUN/Creatinine Ratio Glucose Calcium Total Bilirubin AST ALT Alkaline Phosphatase Total Protein Albumin Globulin Albumin/Globulin Ratio TSH Urine Color Dark Yellow Urine Appearance Clear Urine pH 5.5 Ur Specific [place] 1.026 Urine Protein Negative Urine Glucose (UA) Negative Urine Ketones Negative Urine Blood Negative Urine Nitrite Negative Urine Bilirubin Negative Urine Urobilinogen Negative Ur Leukocyte Esterase Trace H Urine WBC (Auto) 1-5 Urine RBC (Auto) 0-4 U Hyaline Cast (Auto) 1-5 U Epithel Cells (Auto) 0-5 Urine Bacteria (Auto) Negative Salicylates Urine Opiates Screen Neg Ur Methadone, Qual Neg Acetaminophen Urine Barbiturates Neg Ur Phencyclidine (PCP) Neg U Amphetamin/Meth Scrn Neg MDMA (Ecstasy) Screen Neg U Benzodiazepines Scrn Neg Ur Cocaine Metabolite Neg U Marijuana (THC) Screen Neg Ethyl Alcohol mg/dL 04/29/19 04/29/19 04/29/19 09:29 09:29 09:29 WBC RBC Hgb Hct MCV MCH MCHC RDW Std Deviation RDW Coeff of Ari Plt Count MPV Immature Gran % (Auto) Neut % (Auto) Lymph % (Auto) [place] % (Auto) Eos % (Auto) Baso % (Auto) Immature Gran # (Auto) Neut # (Auto) Lymph # (Auto) [place] # (Auto) Eos # (Auto) Baso # (Auto) Sodium 141 Potassium 3.9 Chloride 110 H Carbon Dioxide 24 Anion Gap 8.0 BUN 17 Creatinine 0.85 Est Cr Clr Drug Dosing 139.6 Est GFR ( Amer) 121.1 Est GFR (Non-Af Amer) 104.5 BUN/Creatinine Ratio 19.8 Glucose 112 H Calcium 9.2 Total Bilirubin 0.7 AST 12 L ALT 27 Alkaline Phosphatase 60 Total Protein 7.0 Albumin 3.7 Globulin 3.3 Albumin/Globulin Ratio 1.1 TSH 0.629 Urine Color Urine Appearance Urine pH Ur Specific [place] Urine Protein Urine Glucose (UA) Urine Ketones Urine Blood Urine Nitrite Urine Bilirubin Urine Urobilinogen Ur Leukocyte Esterase Urine WBC (Auto) Urine RBC (Auto) U Hyaline Cast (Auto) U Epithel Cells (Auto) Urine Bacteria (Auto) Salicylates < 1.7 L Urine Opiates Screen Ur Methadone, Qual Acetaminophen < 2 L Urine Barbiturates Ur Phencyclidine (PCP) U Amphetamin/Meth Scrn MDMA (Ecstasy) Screen U Benzodiazepines Scrn Ur Cocaine Metabolite U Marijuana (THC) Screen Ethyl Alcohol mg/dL < 3.0 05/02/19 12:35 WBC RBC Hgb Hct MCV MCH MCHC RDW Std Deviation RDW Coeff of Ari Plt Count MPV Immature Gran % (Auto) Neut % (Auto) Lymph % (Auto) [place] % (Auto) Eos % (Auto) Baso % (Auto) Immature Gran # (Auto) Neut # (Auto) Lymph # (Auto) [place] # (Auto) Eos # (Auto) Baso # (Auto) Sodium Potassium Chloride Carbon Dioxide Anion Gap BUN Creatinine Est Cr Clr Drug Dosing Est GFR ( Amer) Est GFR (Non-Af Amer) BUN/Creatinine Ratio Glucose Calcium Total Bilirubin AST ALT Alkaline Phosphatase Total Protein Albumin Globulin Albumin/Globulin Ratio TSH Urine Color Yellow Urine Appearance Clear Urine pH 6.0 Ur Specific [place] 1.013 Urine Protein Negative Urine Glucose (UA) Negative Urine Ketones Negative Urine Blood Negative Urine Nitrite Negative Urine Bilirubin Negative Urine Urobilinogen Negative Ur Leukocyte Esterase Trace H Urine WBC (Auto) 1-5 Urine RBC (Auto) 0-4 U Hyaline Cast (Auto) 0 U Epithel Cells (Auto) 0-5 Urine Bacteria (Auto) Negative Salicylates Urine Opiates Screen Ur Methadone, Qual Acetaminophen Urine Barbiturates Ur Phencyclidine (PCP) U Amphetamin/Meth Scrn MDMA (Ecstasy) Screen U Benzodiazepines Scrn Ur Cocaine Metabolite U Marijuana (THC) Screen Ethyl Alcohol mg/dL Hospital Course (1) Suicidal ideation: Every 15 minute checks for safety. Continue hospitalization on an involuntary commitment. This expires on Saturday05/04/2019, and we will need to continue to gather information toward the need for ongoing treatment. 05/01 - Denies SI today, but unable to convincingly contract for safety - Ensure consistency of mood and resolution of SI prior to discharge 05/04 - Denies SI today, but reports "flashes" of SI yesterday with plan, but not intent - States these thoughts are similar to those experienced prior to admission 05/05 -Denying suicidal thoughts for the past 2 days. Is able to review his discharge safety plan. (2) Depression: Continue mirtazapine 45 mg at bedtime. Concerta may be continued once brought in (nonformulary); clarified with outpatient psychiatrist that it is being used for depression (no history of ADHD). -Coordinated care with Dr. Alexander -restlessness occurred after increase in Rexalti dose, so will hold the medication (long half-life, so will self taper). As above encouraged him to consider ECT, which he was unwilling to do at this time. -Explore options for family meeting. Patient currently stating he has no supports. -Coordinate care with [facility]. -Encourage participation in groups and therapy, work on healthy coping skills and discharge safety plan. 05/01 - Ione 300mg qHS was initiated following initial assessment yesterday, will continue at current dose. Continue mirtazapine 45mg and Concerta 54mg - friend was not able to locate Michael to bring in for administration of non- formulary medication - Continue to educate on potential for ECT - Coordinate care with outpatient case manager - Encourage participation in group and recreational therapy 05/02 -reviewed ECT, TMS and esketamine as treatment options given his treatment resistant depression with pt wary none of these options might be practical for him at this time. -processed financial and work stressors and how adding to his anxiety and depression 05/03 - processing his decision about his aim to resume work at [employer] if able to 05/04 - Continue current medication regimen - pt to make phone calls to employers today to tease out his work situation - Continue to engage patient in group programming - Processing with patient 1:1 regarding decisions related to work 05/05 -Discharged home. -Prescription issued for lithium, 30-day supply. -Referred for outpatient therapy with initial evaluation tomorrow. -Care coordinated with Dr. Alexander, follow-up appointment tomorrow. -BCM to meet with him today prior to discharge. Patient encouraged to identi fy goals, including working on a budget in order to decrease anxiety around finances. (3) Generalized anxiety disorder: Continue home dose of clonazepam 0.5 mg daily as needed, and offer hydroxyzine as needed as well. 05/01 - Continue as above - anxiety significantly improved today - If anxiety is exacerbated, consider having clonazepam available BID prn for management of symptoms 05/02 - changed clonazepam to 0.5mg am scheduled and 0.5mg prn po qday for severe anxiety (4) Dysthymic disorder: (5) Asthma: Continue loratadine, Flonase, and inhaler. Mental Health & Subst Abuse Tx Psychiatrist Name of Psychiatrist: Gagan Ku - Dr. Alexander Psychiatrist's Date of Appointment with Psychiatrist: 05/06/19 Time of Appointment with Psychiatrist: 7:40 AM Psychiatric Appointment Comment: [address], [place] [address] Therapist Name of Therapist: [facility] - Mildred Emery LCSW Therapist's Date of Therapist Appointment: 05/06/19 Time of Therapist Appointment: 11 a.m. Therapy Appointment Comment: [id number], [place] [address] Termite Inspector Name of Termite Inspector: BRITTANY Sanchez Phone Number for Termite Inspector: Case Management Appointment Comment: Will continue to see you Tuesdays at 7:45 a.m. Post Discharge Appointments Primary Care Physician Name Of Family Doctor: Stanley Leon Primary Care Time of Appointment with PCP: Follow up as needed. Provider Appointment Comment: [address], [place] [address] Smoking Cessation Counseling Tobacco Cessation Medication Prescribed at Discharge: Not Applicable/Non-Smoker Contact Information Discharge Discharge Address: [facility] [address] [place] [address] Discharge Plan Discharge Items Patient Disposition: Home - Self-Care Reason For Visit: DEPRESSION Discharge Diagnosis: Depression Generalized anxiety disorder Activity: Per Instructions section Non-emergency contact: Primary Care Provider, Psychiatrist, Therapist and Painter Mirror Call non-emergency contact if: you have any medication questions and your symptoms worsen Follow-up/Referrals: Michael Leon MD [Primary Care Provider] - Diet: Regular Addtl Attending Provider Instructions: SPECIAL CARE INSTRUCTIONS: 1. Follow through with your scheduled aftercare appointments. If unable to keep an appointment, please call to reschedule. 2. Take your medication only as prescribed. Medication should not be changed or stopped without the approval of your doctor. In the event of worsening symptoms or concerns about side effects, contact your doctor immediately. 3. Utilize new healthy coping skills, anger management skills, and stress management skills learned during your hospitalization. Journal feelings and process them with a support person. Identify stressors or situations that may result in relapse, deterioration or inappropriate behaviors and develop a plan to deal with those issues. 4. If your coping skills are ineffective and you are in crisis, contact your outpatient providers for direction. If unable to reach your providers, please call the CAN HELP LINE AT or go to the closest Emergency Room. 5. Avoid alcohol and un-prescribed drugs. 6. You have been provided with the Mental Health Advance Directives Pamphlet for your review. AFTERCARE APPOINTMENTS: * Please call your insurance company prior to your scheduled appointment to confirm your aftercare providers are covered. Take your insurance information to your appointments. WHO TO CALL AND WHEN: Medical Emergencies: For questions or emergencies related to your hospital stay, please contact the Inpatient Behavioral Health Unit at [phone]. A lens polisher is on-call 07/01 for the Behavioral Health Unit for emergencies At any time you feel your situation is an emergency, you may also call 911 immediately. Your Doctors Instructions noted above were prepared by provider Linda Nelson MD. Pending Studies at Discharge: No Stand-Alone Forms: [facility], Smoking Cessation, Suicide Prevention Resources Medications and DC Order Prescriptions: New lithium carbonate 300 mg Tablet 300 mg PO HS Qty: 30 RF: 0 Continued clonazepam 0.5 mg tablet 0.5 mg PO DAILY PRN (Reason: Anxiety) RF: 0 methylphenidate HCl 54 mg tablet extended release 24hr 54 mg PO DAILY RF: 0 fluticasone propionate [Flonase Allergy Relief] 50 mcg/actuation Gibson,Suspension 2 spray INTRANASAL DAILY RF: 0 loratadine [Claritin] 10 mg Tablet 10 mg PO DAILY RF: 0 fluticasone propion-salmeterol [Wixela Inhub] 250-50 mcg/dose blister with device 1 inh INHALATION BID RF: 0 amlodipine 2.5 mg tablet 2.5 mg PO DAILY RF: 0 mirtazapine 45 mg tablet 45 mg PO QPM RF: 0 zaleplon 10 mg capsule 10 mg PO QPM RF: 0 Discontinued Rexulti 2 mg tablet 2 mg PO DAILY RF: 0 Discharge Orders: Discharge Order (Routine); Ordered 05/05/19 Ordered By: Linda Nelson Admission Data Admit Date/Time: 04/29/19 17:58 Attending Provider: Linda Nelson Admit Provider: Linda Nelson Primary Care Provider: Michael Leon Other Interventions: PSY Interdisciplinary Discharge Planning Last Done: 05/04/19 09:13 Coding Level of Care Code 14070 D/C day mgmt > 30 min Diagnoses Suicidal ideation R45.851 Depression F33.2 Active/Remission status: currently active Depression Type: major depressive disorder Major depression episode severity: severe Major depression recurrence: recurrent Psychotic features: without psychotic features Generalized anxiety disorder F41.1 Dysthymic disorder F34.1 Asthma J45.909
[2019-05-05 10:06] VITALS: PULSE 85
== END 2019-05-05 14:15 | disposition home or self-care (01) | DRG 885 ==
LOC: ED 08:50 → 3S 17:58

== ENCOUNTER 2019-05-11 21:30 | Inpatient (IN) ==
[2019-05-11 22:42] LABS: Appearance Urine Clear (Clear); Bilirubin Urine Negative (Negative); Blood Urine Negative (Negative); Color Urine Dark Yellow; Glucose Urine UA Negative (Negative); Ketones Urine Trace (Negative); Leukocyte Esterase Urine Negative (Negative); Nitrite Urine Negative (Negative); Protein Urine Negative (Negative); Specific Gravity Urine 1.027 (1.000-1.030); Urobilinogen Urine Negative (Negative)
[2019-05-11 22:43] LABS: Amphetamines+Metham, Urine Neg (Neg); Barbiturates, Urine Neg (Neg); Benzodiazepine, Urine Neg (Neg); Cocaine, Urine Neg (Neg); MDMA (Ecstacy), Urine Neg (Neg); Methadone, Urine Neg (Neg); Opiate, Urine Neg (Neg); Phencyclidine, Urine Neg (Neg)
[2019-05-11 22:48] LABS: Basophils # (auto) 0.03 K/uL (0-0.2); Basophils % (auto) 0.4 %; Eosinophils # (auto) 0.36 K/uL (0-0.5); Eosinophils % (auto) 4.3 %; Hematocrit (blood only) 44.1 % (42-52); Hemoglobin 15.1 g/dL (14.0-18.0); Immature Granulocytes # (auto) 0.02 K/uL (0.00-0.02); Immature Granulocytes % (auto) 0.2 %; Lymphocytes # (auto) 1.39 K/uL (1.2-3.4); Lymphocytes % (auto) 16.5 %; Mean Corpuscular Hemoglobin 29.8 pg (25-34); Mean Corpuscular Hgb Conc 34.2 g/dL (32-36); Mean Corpuscular Volume 87.2 fL (80-100); Mean Platelet Volume 9.5 fL (7.4-10.4); Monocytes # (auto) 0.68 K/uL (0.11-0.59); Monocytes % (auto) 8.1 %; Neutrophils # (auto) 5.94 K/uL (1.4-6.5); Neutrophils % (auto) 70.5 %; Platelet Count 264 K/uL (130-400); RDW Coefficient of Variation 12.2 % (11.5-14.5); Red Blood Count 5.06 M/uL (4.7-6.1); White Blood Count 8.42 K/uL (4.8-10.8)
[2019-05-11 23:07] LABS: Albumin Level 3.6 gm/dl (3.4-5.0); BUN Creatinine Ratio 13.2 (10-20); Calcium 8.9 mg/dl (8.5-10.1); Creatinine Clr Calc Pharmacy 106.3 ml/min; Est GFR (African American) 102.9; Est GFR (Non-African American) 88.8; Potassium 3.5 mmol/L (3.5-5.1)
[2019-05-11 23:18] LABS: Albumin Globulin Ratio 1.1 (0.9-2); Bilirubin,Total 0.4 mg/dl (0.2-1); Globulin 3.4 gm/dl (2.5-4.0); Thyroid Stimulating Hormone 2.41 uIu/ml (0.300-4.500)
[2019-05-11 23:27] LABS: Acetaminophen < 2 ug/ml (10-30); Lithium 0.9 mmol/L (0.6-1.2)
--- NOTE | 2019-05-12 01:10 | Emergency Department Note ---
Entered by Yunier Miles acting as a scribe for ED Provider Note CHIEF COMPLAINT: Worsening Suicidal Ideations HISTORY OF PRESENT ILLNESS: The patient is a 48 year old male who presents to the Emergency Room with complaints of worsening suicidal ideations beginning five days ago. The patient states he is not feeling great. He reports he has been following up with Dr. Alexander as he was supposed to. The patient notes he feels like he is falling back and the past three-five days he has been suicidal. He states he feels worse than when he was before his last hospital admission. The patient reports working his one job on Saturday and then being alone Saturday seems to be stressing and triggering him. He notes his at-home situation and work situation has not changed since last time. The patient states he has thought of just swallowing a large amount of pills or driving his car out somewhere. He reports he is afraid that if he tries to commit suicide, he will fail and injury himself. The patient notes if he knew he would have been successful, he may have been more inclined to do attempt suicide. He states he still feels the anxiety after leaving and the thought of his problems did not resolved completely after he was discharged from the hospital last time. The patient reports he does not want to feel this way anymore and is tore between getting help and not. He notes chronic back pain issues, and he went to physical therapy this evening. The patient states he has two different jobs and has not done anything in particular to increase his back pain. He reports he does not think he needs medication at this time, and he did take his [place] this evening. Pt denies LOC, headache, fevers, chills, diaphoresis, visual changes, neck pain, chest pain, breathing difficulties, nausea, vomiting, abdominal pain, new back pain, melena, hematochezia, urinary symptoms, numbness, weakness, lymphadenopathy, rash, or other complaints. Psychiatric case management states the patient's outpatient psychiatrist. Dr. Alexander, called. She notes the patient has been suicidal since yesterday, and last night she was able to divert the patient to his safety plan. She states tonight he was severely depressed and suicidal. She notes he is voluntary at this time, but she is willing write a 302 petition if needed. REVIEW OF SYSTEMS: See HPI for pertinent positives and negatives. A total of ten systems were reviewed and were otherwise negative. PMHx/PSHx: Depression, asthma, NAHOMY SOCIAL HISTORY: Patient lives at home. PHYSICAL EXAM: GENERAL: Awake, alert, well-appearing, in no distress HENT: Normocephalic, atraumatic. Oropharynx unremarkable. EYES: PERRL. Normal conjunctiva. Sclera non-icteric. NECK: Inspection normal. Non-tender. Supple. No nuchal rigidity. FROM. No masses. RESPIRATORY: Clear to auscultation. No wheezes. No rales. Normal respiratory effort. CARDIAC: Normal rate. Normal rhythm. No murmurs. No rubs. Extremities warm and well perfused. Pulses equal. No JVD. GI: Soft, non-distended. No tenderness to palpation. No rebound or guarding. No masses. RECTAL: Deferred. MUSCULOSKELETAL: Atraumatic. Chest examination reveals no tenderness. The back is symmetrical on inspection without obvious abnormality. There is no CVA tenderness to palpation. No joint edema. LOWER EXTREMITIES: Calves are equal size bilaterally and non-tender. No edema. No discoloration. NEURO: Normal sensorium. No sensory or motor deficits noted. SKIN: No rash or jaundice noted. PSYCH: Depressed mood, flat affect, suicidal ideation. EMERGENCY DEPARTMENT COURSE: 2233: Past medical records reviewed - he was discharged on the by []. He has been following with Dr. Alexander in the outpatient setting. While inpatient, his sleep improved, and he had complete resolution of his SI and was discharged. He was placed on [place]. The patient was evaluated in room A06, and a complete history and physical examination were performed. 0011: The patient is being evaluated by [address] [place] [address]. 0110: The patient was accepted to [address] [place] [address]. MEDICAL DECISION MAKING: Prior records/ancillary studies reviewed. Triage Nursing notes reviewed and agree them. Additional history obtained from the family. The patient's history was concerning for possible psychiatric disturbance. Differential diagnosis: Etiologies such as mood disorder, infection, hypoglycemia, electrolyte abnormalities, cardiac sources, intracerebral event, toxicologic, neurologic, as well as others were entertained. Physical examination: The physical examination was performed as above and was completely benign. No emergent medical pathologies were noted. ER treatment provided: Patient declined anxiety medication. He had already taken his evening medications. On reassessment the patient was stable. Diagnostic interpretation by me: The labs revealed an unremarkable CBC, chemistry panel, toxicology screen, drug screen, as well as lithium level. Imaging studies: Deferred Consultation: Patient was evaluated by the ER psychiatric keycase assembler. Consultation was made with [facility]. The patient was admitted for further treatment. IMPRESSION: Mood disorder Suicidal ideation PLAN: Admitted The scribe's documentation has been prepared under my direction and personally reviewed by me in its entirety. I confirm that the note above accurately reflects all work, treatment, procedures, and medical decision making performed by me. 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 Beliefs That Will Affect Care: None Feels Safe at Home: Yes Smoking Status: Never smoker Results & Data Vital Signs Vital Signs - 24 hr 05/11/19 21:32 05/12/19 01:41 Temperature 36.7 C Temperature Source Oral Pulse Rate 109 H Pulse Rate [Apical] 75 Respiratory Rate 16 18 Respiratory Effort / Characteristics Non-Labored Spontaneous Respiratory Depth Normal Blood Pressure 173/102 H Blood Pressure [Right Arm] 109/65 Blood Pressure Mean 125 Blood Pressure Mean [Right Arm] 79 Blood Pressure Position Sitting Pulse Oximetry 95 97 Oxygen Delivery Method Room Air Sepsis Recent Fever Within 48 Hours No Sepsis Action Taken by Nursing No Action Required Home Medications Current Medication List: was personally reviewed by me Laboratory Data Attestation: I reviewed the patient's lab results. Result diagrams: 05/11/19 22:29 05/11/19 22:29 Lab Results 05/11/19 05/11/19 05/11/19 Range/Units 21:57 21:57 22:29 WBC 8.42 (4.8-10.8) K/uL RBC 5.06 (4.7-6.1) M/uL Hgb 15.1 (14.0-18.0) g/dL Hct 44.1 (42-52) % MCV 87.2 (80-100) fL MCH 29.8 (25-34) pg MCHC 34.2 (32-36) g/dL RDW Std Deviation 39.0 (36.4-46.3) fL RDW Coeff of Ari 12.2 (11.5-14.5) % Plt Count 264 (130-400) K/uL MPV 9.5 (7.4-10.4) fL Immature Gran % (Auto) 0.2 % Neut % (Auto) 70.5 % Lymph % (Auto) 16.5 % Foster % (Auto) 8.1 % Eos % (Auto) 4.3 % Baso % (Auto) 0.4 % Immature Gran # (Auto) 0.02 (0.00-0.02) K/uL Neut # (Auto) 5.94 (1.4-6.5) K/uL Lymph # (Auto) 1.39 (1.2-3.4) K/uL Foster # (Auto) 0.68 H (0.11-0.59) K/uL Eos # (Auto) 0.36 (0-0.5) K/uL Baso # (Auto) 0.03 (0-0.2) K/uL Sodium (136-145) mmol/L Potassium (3.5-5.1) mmol/L Chloride (98-107) mmol/L Carbon Dioxide (21-32) mmol/L Anion Gap (3-11) BUN (7-18) mg/dl Creatinine (0.6-1.4) mg/dl Est Cr Clr Drug Dosing ml/min Est GFR ( Amer) Est GFR (Non-Af Amer) BUN/Creatinine Ratio (10-20) Glucose (70-99) mg/dl Calcium (8.5-10.1) mg/dl Total Bilirubin (0.2-1) mg/dl AST (15-37) U/L ALT (12-78) U/L Alkaline Phosphatase (45-117) U/L Total Protein (6.4-8.2) gm/dl Albumin (3.4-5.0) gm/dl Globulin (2.5-4.0) gm/dl Albumin/Globulin Ratio (0.9-2) TSH (0.300-4.500) uIu/ml Urine Color Dark Yellow Urine Appearance Clear (Clear) Urine pH 5.0 (4.5-7.5) Ur Specific [place] 1.027 (1.000-1.030) Urine Protein Negative (Negative) Urine Glucose (UA) Negative (Negative) Urine Ketones Trace H (Negative) Urine Blood Negative (Negative) Urine Nitrite Negative (Negative) Urine Bilirubin Negative (Negative) Urine Urobilinogen Negative (Negative) Ur Leukocyte Esterase Negative (Negative) Salicylates (2.8-20) mg/dl Urine Opiates Screen Neg (Neg) Ur Methadone, Qual Neg (Neg) Acetaminophen (10-30) ug/ml Urine Barbiturates Neg (Neg) Ur Phencyclidine (PCP) Neg (Neg) U Amphetamin/Meth Scrn Neg (Neg) MDMA (Ecstasy) Screen Neg (Neg) U Benzodiazepines Scrn Neg (Neg) [place] (0.6-1.2) mmol/L Ur Cocaine Metabolite Neg (Neg) U Marijuana (THC) Screen Neg (Neg) Ethyl Alcohol mg/dL (0-3) mg/dl 05/11/19 05/11/19 05/11/19 Range/Units 22:29 22:29 22:29 WBC (4.8-10.8) K/uL RBC (4.7-6.1) M/uL Hgb (14.0-18.0) g/dL Hct (42-52) % MCV (80-100) fL MCH (25-34) pg MCHC (32-36) g/dL RDW Std Deviation (36.4-46.3) fL RDW Coeff of Ari (11.5-14.5) % Plt Count (130-400) K/uL MPV (7.4-10.4) fL Immature Gran % (Auto) % Neut % (Auto) % Lymph % (Auto) % Foster % (Auto) % Eos % (Auto) % Baso % (Auto) % Immature Gran # (Auto) (0.00-0.02) K/uL Neut # (Auto) (1.4-6.5) K/uL Lymph # (Auto) (1.2-3.4) K/uL [place] # (Auto) (0.11-0.59) K/uL Eos # (Auto) (0-0.5) K/uL Baso # (Auto) (0-0.2) K/uL Sodium 139 (136-145) mmol/L Potassium 3.5 (3.5-5.1) mmol/L Chloride 108 H (98-107) mmol/L Carbon Dioxide 25 (21-32) mmol/L Anion Gap 6.0 (3-11) BUN 13 (7-18) mg/dl Creatinine 1.01 (0.6-1.4) mg/dl Est Cr Clr Drug Dosing 106.3 ml/min Est GFR ( Amer) 102.9 Est GFR (Non-Af Amer) 88.8 BUN/Creatinine Ratio 13.2 (10-20) Glucose 107 H (70-99) mg/dl Calcium 8.9 (8.5-10.1) mg/dl Total Bilirubin 0.4 (0.2-1) mg/dl AST 15 (15-37) U/L ALT 30 (12-78) U/L Alkaline Phosphatase 53 (45-117) U/L Total Protein 7.0 (6.4-8.2) gm/dl Albumin 3.6 (3.4-5.0) gm/dl Globulin 3.4 (2.5-4.0) gm/dl Albumin/Globulin Ratio 1.1 (0.9-2) TSH 2.410 (0.300-4.500) uIu/ml Urine Color Urine Appearance (Clear) Urine pH (4.5-7.5) Ur Specific [place] (1.000-1.030) Urine Protein (Negative) Urine Glucose (UA) (Negative) Urine Ketones (Negative) Urine Blood (Negative) Urine Nitrite (Negative) Urine Bilirubin (Negative) Urine Urobilinogen (Negative) Ur Leukocyte Esterase (Negative) Salicylates 8.0 (2.8-20) mg/dl Urine Opiates Screen (Neg) Ur Methadone, Qual (Neg) Acetaminophen < 2 L (10-30) ug/ml Urine Barbiturates (Neg) Ur Phencyclidine (PCP) (Neg) U Amphetamin/Meth Scrn (Neg) MDMA (Ecstasy) Screen (Neg) U Benzodiazepines Scrn (Neg) [place] 0.9 (0.6-1.2) mmol/L Ur Cocaine Metabolite (Neg) U Marijuana (THC) Screen (Neg) Ethyl Alcohol mg/dL < 3.0 (0-3) mg/dl Blood Pressure Blood Pressure Findings: Elevated blood pressure Blood Pressure Disposition: further management by hospitalist Discharge Plan Visit Data Chief Complaint: Mental Health Evaluation Stated Complaint: MENTAL HEALTH EVAL ED Provider: Jeremy Thomas Discharge Problem: Mood disorder, Suicidal ideation Patient Disposition: Being Evaluated by Hospitalist Forms Stand Alone Forms: My [facility], Suicide Prevention Resources Prescriptions Prescriptions: No Action lithium carbonate 300 mg Tablet 300 mg PO HS RF: 0 clonazepam 0.5 mg tablet 0.5 mg DIRECTED PRN (Reason: Anxiety) RF: 0 methylphenidate HCl 54 mg Tablet Extended Release 24hr 54 mg PO DAILY RF: 0 Flonase Allergy Relief 50 mcg DAILY RF: 0 amlodipine 2.5 mg tablet 2.5 mg DAILY RF: 0 fluticasone propion-salmeterol [Advair Diskus] 250-50 mcg/dose blister with device 250 inh INHALATION DIRECTED RF: 0 mirtazapine 45 mg tablet 45 mg QPM RF: 0 zaleplon 10 mg capsule 10 mg QPM RF: 0 Referrals Referrals: Michael Leon MD [Primary Care Provider] - The scribe's documentation has been prepared under my direction and personally reviewed by me in its entirety. I confirm that the note above accurately reflects all work, treatment, procedures, and medical decision making performed by me.
[2019-05-12] MEDS ORDERED: ACETAMINOPHEN 325 MG TAB PO PRN (02:50)
[2019-05-12] MEDS ORDERED: MAGNESIUM HYDROXIDE SUSP 30 ML UDC PO PRN (02:50)
[2019-05-12] MEDS ORDERED: SODIUM CHLORIDE 0.65% NA SOLN 45 ML (OCEAN) PRN (02:50)
[2019-05-12] MEDS ORDERED: BISMUTH SUBSALICYLATE PER ML OMNICELL CHARGE PO PRN (02:50)
[2019-05-12] MEDS ORDERED: ALUMINUM/MAGNESIUM SUSP 30 ML UDC PO PRN (02:50)
[2019-05-12] MEDS ORDERED: clonazePAM 0.5 MG TAB PO PRN (02:56)
[2019-05-12] MEDS ORDERED: FLUTICASONE/SALMETEROL 250/50 (ADVAIR) 14 PUFF/1 INHALER INH SCH (09:00)
[2019-05-12] MEDS ORDERED: FLUTICASONE PROPIONATE NA SPR 16 GM BTL SCH (09:00)
[2019-05-12] MEDS ORDERED: METHYLPHENIDATE 54 MG PO SCH ×2 (09:00)
[2019-05-12] MEDS ORDERED: AMLODIPINE BESYLATE 5 MG TAB PO SCH (09:00)
[2019-05-12] MEDS ORDERED: LORATADINE 10 MG TAB PO SCH (09:00)
--- NOTE | 2019-05-12 09:10 | History & Physical ---
Date of Service May 12, 2019 Impression / Recommendations Impression 48-year-old male admitted voluntarily for inpatient psychiatric treatment on 05/12/19 after presenting to the ED with inability to function at home, admitting to suicidal thoughts, with consideration to overdose on pills. Pt was recently admitted to our unit involuntarily from 04/29/19 - 05/05/19 for similar concerns, having been unable to contract for safety after a visit with his outpatient psychiatrist. Pt states that there are no major situational changes presently, but that he continues to be overwhelmed with the stress of working multiple jobs and feeling as though he is not properly caring for himself at home. Presently it is not clear if patient will need to be transferred to an in-network facility - as he was only granted coverage last admission due to his involuntary commitment status. We will begin by making referrals to in-network facilities. In the meantime, will continue his outpatient medication regimen - updated after admission, as lithium was reportedly titrated to 900mg qHS this past weekend. Outpatient psychiatrist had also mentioned restarting low-dose Rexulti, with recognition that he may have experienced activation/akathisia at higher doses. Will defer changes until an accepting facility can be determined or a single-case agreement is authorized. In the interim, will encourage participation in group and recreational programming. Pt is at high risk of harm to self if discharged prematurely, as he has admitted to with consideration to overdose, has limited outpatient supports, and is presently failing outpatient treatment despite weekly appointments. Dr. Linda Nelson was directly involved in initial review and discussion of the patient's case and participated in medical decision making regarding treatment recommendations. (1) Suicidal ideation: 05/12 - Admitted to a locked inpatient behavioral health unit, on q15 minute safety checks - Encourage medication initiation/adjustments as indicated - Encourage participation in group and recreational therapies - Gather collateral information from outpatient providers - Suggest family meeting to involve outpatient supports in safety planning - Arrange appropriate aftercare (2) Depression: 05/12 - Continue home medication regimen - mirtazapine 45mg qHS, methylphenidate 54mg, and zaleplon 10mg qHS. [place] was recently titrated to 900mg qHS - Will order lithium level for evening of 05/15 - as dose increase was started 05/10 - Consider retrial of low-dose Rexulti - which patient has brought to the unit, as it is non-formulary - Encourage consideration for changes to job/housing situation - as financial and home stressors continue to be unmanageable for him in his present condition - Meeting with outpatient telehealth case manager - Encourage participation in group and recreational programming - Assist with development of healthy and effective coping strategies - Encourage involvement in safety and discharge planning Active/Remission status: currently active Depression Type: major depressive disorder Major depression episode severity: severe Major depression recurrence: recurrent Psychotic features: without psychotic features Qualified Code(s): F33.2 - Major depressive disorder, recurrent severe without psychotic features (3) Generalized anxiety disorder: 05/12 - Continue home medication regimen - clonazepam 0.5mg available once daily as needed for acute anxiety - Hydroxyzine 25mg q4h prn acute anxiety as standing admission order - Encourage development of healthy and effective coping strateiges (4) Asthma: 05/12 - Continue home doses of loratadine, Flonase, and Advair Risk Factors Assessment Do You Have Access To A Gun?: No Protective Factors Assessment Employed: Yes ([employer] ([employer])) Psychiatric History Identifying Data ALFONSO MARIA is a 48-year-old M who currently lives in [place] with 2 roommates. Pt has a history of severe recurrent depression and generalized anxiety disorder and was admitted to our unit from 04/29/19 - 05/05/19 for failure of outpatient treatment with concerns for inability to function outside of the hospital setting. He was admitted on 05/12/19 01:56 on a 201 voluntary commitment for the same concerns, with destabilization after discharge from inpatient treatment. Chief Complaint " I just cannot get out of my own head. Has been having bad thoughts all the time." History of Present Illness Alfonso Maria is a 48-year-old male admitted voluntarily on 05/12/2018 for inpatient psychiatric treatment. Patient had reported worsening depression and increased suicidal ideation for the past 5 days. He had admitted in the emergency room to feeling worse presently than he had before his last inpatient psychiatric admission. Patient was most recently admitted to our unit from 04/29/2019 through 05/05/2019 for similar concerns and failure of weekly outpatient treatments. Patient admitted to continued stress with working to jobs. He also admits to difficulty functioning at home, as he has limited local supports and is overwhelmed in his living situation. There have been no significant changes in his work situation since his last admission; however, he is having difficulty functioning in the outpatient setting. Patient is cooperative with psychiatric evaluation. He shares with his provider that he feels as though "I just cannot get out of my own head. I have been having bad thoughts all the time." Patient states that there have been no significant changes in regards to stressors since his last admission. He admits that he continues to attend work; however, his job situation remains extremely overwhelming. Patient states he has reconsidered the plans he made during his last admission, stating "I worked at [employer] on Saturday, and I just sent me into instant depression. I do not think I could go back there full-time." Patient admits that both of his jobs are not enjoyable, and leave him feeling unmotivated in the evenings. Patient states that he is not properly caring for himself at home, stating "once I get done with work I do not do much of anything." He continues to mention having "a big old mess" of items in his house, that he feels unable to sort through to improve his living situation. He continues to reside with 2 roommates, who are not necessarily identified supports. His mother and brother are not living locally, and therefore unable to be supportive as well. Patient states that he has been compliant with his outpatient appointments, and that his dose of lithium has been titrated since his last visit with his psychiatrist. He states he had his intake appointment with his new therapist. Patient continues to believe that outpatient treatment has not been adequate to improve his current symptoms. Patient states his n egative thoughts "just would not stop." He does admit to this provider consideration to "take a bunch of pills or something." Patient states he is not sure that he would act on these thoughts; however, was unable to provide any clear reasons for continuing to live. Patient states that conversations have been had about applying for disability as well as looking for other supportive housing options. Patient states that at this time he is too overwhelmed to make these decisions. Past Psychiatric History Current Psychiatric Diagnosis: MDD; dysthymic disorder; NAHOMY Outpatient Services: Psychiatrist - Dr. Elen Alexander - [facility] Therapist - Mildred Sanchez Previous Psych Admissions: [facility] - 04/2018 [facility] - 04/29/19; involuntary admission Do You Have Access To A Gun?: No History of Previous Suicide Attempt: No Describe Attempts in the Past: None Past Medication Trials: Per 04/30 H&P: Trazodone - (10/18/2014) retrial 09/2014 oversedated Paxil - 2days "bad experience" Effexor XR - unknown response, retrial partial help, watching HTN Zoloft - unknown response Topamax - used for weight loss issues Abilify - low dose caused drowsiness and akathesia Buspirone - notable sedation Wellbutrin SR - retrial Spring 2013, less heroic sleep periods but PERES at 300mg/d dose, reduced to 150mg/d Klonopin Cymbalta - up to 90mg/d, not fully effective as solo agent for depression no better at 90 than 60mg/d, stopped to go to [facility], then viibryd January 2014 Lamictal - augmentation for depression with Cymbalta Summer 2012, tapered off 01/2013 due to ongoing low mood Cytomel - augmentation 01/2013 with cymbalta, caused suppressed appetite Adderall XR - augmentation for mood 05/2013, HR elevated BP at 40mg/AM and 20mg bid,that dose and lower doses not helpful Concerta - 36mg/AM not fully helpful as augmentation in combatting fatigue or mood Brintellix - dizzyness and nausea and high anxiety on initial doses See Medent For Further Medication Trials Pristiq - worsening of mood (from effexor to pristiq) returned to effexor XR 150. Allergies Allergy/AdvReac Type Severity Reaction Status Date / Time No Known Drug Allergies Allergy Unknown none Verified 04/29/19 09:29 tree nut Allergy Unknown itchy Verified 04/29/19 09:29 watery eyes, sneezing Home Medications Home Medications Medication Instructions Recorded Confirmed Type Flonase Allergy Relief 50 mcg DAILY 05/12/19 05/12/19 History amlodipine 2.5 mg DAILY 05/12/19 05/12/19 History clonazepam 0.5 mg DIRECTED PRN 05/12/19 05/12/19 History fluticasone propion-salmeterol 250 inh INHALATION DIRECTED 05/12/19 05/12/19 History [Advair Diskus] lithium carbonate 300 mg PO HS 05/12/19 05/12/19 History methylphenidate HCl 54 mg PO DAILY 05/12/19 05/12/19 History mirtazapine 45 mg QPM 05/12/19 05/12/19 History zaleplon 10 mg QPM 05/12/19 05/12/19 History Family History Family History of: Doesn't Know Family Mental Health History Comment: Step brother completed suicide - pt never met him Alcohol History Hx of Alcohol Use Over the Past 12 Months: No AUDIT Total Score: 0 Smoking Use Have You Smoked or Used Tobacco Products in the Last 30 Days: No Smoking Status: Never smoker Substance History Hx of Prescription Med Misuse Over the Past 12 Months: No Hx of Over the Counter Med Misuse Over the Past 12 Months: No Hx of Inhalent Misuse Over the Past 12 Months: No Hx of Organic Substance Use Over the Past 12 Months: No Hx of Illegal Substances/Street Drug Use Over Past 12 Months: No Problems as a Result of Past Substance Use: None Identified Personal History Living Arrangements: Apartment (with 2 roommates, not identified as supports) Highest Grade Completed: Some College 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[employer]; 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[employer]) Marital Status: Single Number Of Children: None Beliefs That Will Affect Care: None Hx Legal Problems: No Hx Traumatic Life Events: No Patient History Medical History Asthma (Chronic) Depression (Chronic) Dysthymic disorder Generalized anxiety disorder Surgical History No pertinent past surgical history Family History Other Family history non-contributory Social History Preferred Language: Hungarian Communication 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 Physical Exam Psychiatric: Orientation: alert and oriented x 3 Apperance: appropriately dressed, + disheveled and appeared stated age Overweight male, seated in no acute distress. Patient is appropriately dressed in longsleeve T-shirt and jeans. He is wearing corrective lenses. Patient has short hair which appears unkempt, as well as facial hair. Level of hygiene appears adequate, though likely not optimal. Eye Contact: + poor eye contact (Stares at floor for the majority of encounter) Motor Behavior: steady gait and station and no abnormal motor movements Speech: normal rate/rhythm/volume of speech (Monotone, brief responses to questions) Affect: + depressed affect (Severely) and mood congruent with affect Mood: + depressed mood and + anxious mood Thought Process: goal directed thought process, clear/coherent thought process and thought association intact Thought Content: reality based without delusions, + hopelessness, + worthlessness and + loneliness Suicidal Thoughts: denies suicidal intent (unable to convincingly contract for safety outside of the hospital); + reports suicidal thoughts and + reports suicidal plan (Reports consideration to "take a bunch of pills or something") Homicidal Thoughts: denies homicidal thoughts Hallucinations: no auditory peres llucinations and no visual hallucinations Cognition: attention grossly intact and language grossly intact Insight: + impaired insight Judgement: + impaired judgement Vital Signs (Past 24 Hours): Last Vital Signs Temp 36.7 C 05/12/19 03:40 Pulse 84 05/12/19 09:03 Resp 16 05/12/19 09:03 BP 148/88 H 05/12/19 09:03 Pulse Ox 97 05/12/19 03:40 Exam Statement: A physical exam was performed in the ER prior to admission to the unit by Dr. Jeremy Thomas MD. I accept that physical as correct/medical clearance for the inpatient physical exam. Results & Data Laboratory Results Laboratory Results - last 24 hr 05/11/19 05/11/19 05/11/19 21:57 21:57 22:29 WBC 8.42 RBC 5.06 Hgb 15.1 Hct 44.1 MCV 87.2 MCH 29.8 MCHC 34.2 RDW Std Deviation 39.0 RDW Coeff of Ari 12.2 Plt Count 264 MPV 9.5 Immature Gran % (Auto) 0.2 Neut % (Auto) 70.5 Lymph % (Auto) 16.5 [place] % (Auto) 8.1 Eos % (Auto) 4.3 Baso % (Auto) 0.4 Immature Gran # (Auto) 0.02 Neut # (Auto) 5.94 Lymph # (Auto) 1.39 [place] # (Auto) 0.68 H Eos # (Auto) 0.36 Baso # (Auto) 0.03 Sodium Potassium Chloride Carbon Dioxide Anion Gap BUN Creatinine Est Cr Clr Drug Dosing Est GFR ( Amer) Est GFR (Non-Af Amer) BUN/Creatinine Ratio Glucose Calcium Total Bilirubin AST ALT Alkaline Phosphatase Total Protein Albumin Globulin Albumin/Globulin Ratio TSH Urine Color Dark Yellow Urine Appearance Clear Urine pH 5.0 Ur Specific [place] 1.027 Urine Protein Negative Urine Glucose (UA) Negative Urine Ketones Trace H Urine Blood Negative Urine Nitrite Negative Urine Bilirubin Negative Urine Urobilinogen Negative Ur Leukocyte Esterase Negative Salicylates Urine Opiates Screen Neg Ur Methadone, Qual Neg Acetaminophen Urine Barbiturates Neg Ur Phencyclidine (PCP) Neg U Amphetamin/Meth Scrn Neg MDMA (Ecstasy) Screen Neg U Benzodiazepines Scrn Neg [place] Ur Cocaine Metabolite Neg U Marijuana (THC) Screen Neg Ethyl Alcohol mg/dL 05/11/19 05/11/19 05/11/19 22:29 22:29 22:29 WBC RBC Hgb Hct MCV MCH MCHC RDW Std Deviation RDW Coeff of Ari Plt Count MPV Immature Gran % (Auto) Neut % (Auto) Lymph % (Auto) [place] % (Auto) Eos % (Auto) Baso % (Auto) Immature Gran # (Auto) Neut # (Auto) Lymph # (Auto) [place] # (Auto) Eos # (Auto) Baso # (Auto) Sodium 139 Potassium 3.5 Chloride 108 H Carbon Dioxide 25 Anion Gap 6.0 BUN 13 Creatinine 1.01 Est Cr Clr Drug Dosing 106.3 Est GFR ( Amer) 102.9 Est GFR (Non-Af Amer) 88.8 BUN/Creatinine Ratio 13.2 Glucose 107 H Calcium 8.9 Total Bilirubin 0.4 AST 15 ALT 30 Alkaline Phosphatase 53 Total Protein 7.0 Albumin 3.6 Globulin 3.4 Albumin/Globulin Ratio 1.1 TSH 2.410 Urine Color Urine Appearance Urine pH Ur Specific [place] Urine Protein Urine Glucose (UA) Urine Ketones Urine Blood Urine Nitrite Urine Bilirubin Urine Urobilinogen Ur Leukocyte Esterase Salicylates 8.0 Urine Opiates Screen Ur Methadone, Qual Acetaminophen < 2 L Urine Barbiturates Ur Phencyclidine (PCP) U Amphetamin/Meth Scrn MDMA (Ecstasy) Screen U Benzodiazepines Scrn [place] 0.9 Ur Cocaine Metabolite U Marijuana (THC) Screen Ethyl Alcohol mg/dL < 3.0 Current Inpatient Medications Current Inpatient Medications: Current Inpatient Medications Acetaminophen (Tylenol) 650 mg PO Q4H PRN PRN Reason: Headache or Minor Fever Stop: 06/11/19 02:49 Al Hydrox/Mg Hydrox/Simethicone (Maalox) 30 ml PO Q4H PRN PRN Reason: GI Upset Stop: 06/11/19 02:49 Amlodipine Besylate (Norvasc) 2.5 mg PO QAM KANDICE Stop: 06/11/19 08:59 Last Admin: 05/12/19 08:44 Dose: 2.5 mg Documented by: Bismuth Subsalicylate (Kaopectate) 15 ml PO PRN PRN PRN Reason: Loose Stool Stop: 06/11/19 02:49 Clonazepam (Klonopin) 0.5 mg PO DAILY PRN PRN Reason: Anxiety Stop: 06/11/19 02:55 Fluticasone Propionate (Flonase) 0 sprays NA DAILY KANDICE Stop: 06/11/19 08:59 Last Admin: 05/12/19 08:43 Dose: 2 sprays Documented by: Hydroxyzine HCl (Vistaril) 50 mg PO HSZ PRN PRN Reason: Insomnia Stop: 06/11/19 03:59 Hydroxyzine HCl (Vistaril) 25 mg PO Q4H PRN PRN Reason: Anxiety Stop: 06/11/19 02:49 [place] Carbonate ([place] Carbonate) 300 mg PO HS KANDICE Stop: 06/11/19 21:59 Loratadine (Claritin) 10 mg PO QAM KANDICE Stop: 06/11/19 08:59 Last Admin: 05/12/19 08:44 Dose: 10 mg Documented by: Magnesium Hydroxide (Milk Of Magnesia) 30 ml PO DAILY PRN PRN Reason: Constipation Stop: 06/11/19 02:49 Mirtazapine (Remeron) 45 mg PO HS KANDICE Stop: 06/11/19 21:59 *Methylphenidate Er 54 Mg*Non-Formulary Patient's Own Med 1 ea PO QAM KANDICE; Protocol Stop: 06/11/19 08:59 *Methylphenidate Er 54 Mg*Patient's Own Controlled Med 1 ea PO QAM KANDICE Stop: 05/26/19 08:59 Fluticasone/Salmeterol (Advair Diskus 250/50) 1 puffs INH BID KANDICE Stop: 06/11/19 08:59 Last Admin: 05/12/19 08:42 Dose: 1 puffs Documented by: Sodium Chloride (Eros Nasal) 1 - 2 sprays NA PRN PRN PRN Reason: Nasal Dryness/Congestion Stop: 06/11/19 02:49 Zaleplon (Sonata) 10 mg PO HSZ KANDICE Stop: 06/11/19 21:59
--- NOTE | 2019-05-12 14:33 | Discharge Summary ---
Date of Service May 12, 2019 History of Present Illness Alfonso Maria is a 48-year-old male admitted voluntarily on 05/12/2018 for inpatient psychiatric treatment. Patient had reported worsening depression and increased suicidal ideation for the past 5 days. He had admitted in the emergency room to feeling worse presently than he had before his last inpatient psychiatric admission. Patient was most recently admitted to our unit from 04/29/2019 through 05/05/2019 for similar concerns and failure of weekly outpatient treatments. Patient admitted to continued stress with working to jobs. He also admits to difficulty functioning at home, as he has limited local supports and is overwhelmed in his living situation. There have been no significant changes in his work situation since his last admission; however, he is having difficulty functioning in the outpatient setting. Patient is cooperative with psychiatric evaluation. He shares with his provider that he feels as though "I just cannot get out of my own head. I have been having bad thoughts all the time." Patient states that there have been no significant changes in regards to stressors since his last admission. He admits that he continues to attend work; however, his job situation remains extremely overwhelming. Patient states he has reconsidered the plans he made during his last admission, stating "I worked at [employer] on Saturday, and I just sent me into instant depression. I do not think I could go back there full-time." Patient admits that both of his jobs are not enjoyable, and leave him feeling unmotivated in the evenings. Patient states that he is not properly caring for himself at home, stating "once I get done with work I do not do much of anything." He continues to mention having "a big old mess" of items in his house, that he feels unable to sort through to improve his living situation. He continues to reside with 2 roommates, who are not necessarily identified supports. His mother and brother are not living locally, and therefore unable to be supportive as well. Patient states that he has been compliant with his outpatient appointments, and that his dose of lithium has been titrated since his last visit with his psychiatrist. He states he had his intake appointment with his new therapist. Patient continues to believe that outpatient treatment has not been adequate to improve his current symptoms. Patient states his negative thoughts "just would not stop." He does admit to this provider consideration to "take a bunch of pills or something." Patient states he is not sure that he would act on these thoughts; however, was unable to provide any clear reasons for continuing to live. Patient states that conversations have been had about applying for disability as well as looking for other supportive housing options. Patient states that at this time he is too overwhelmed to make these decisions. Physical Exam Psychiatric Orientation: alert and oriented x 3 Apperance: appropriately dressed, + disheveled and appeared stated age Eye Contact: + poor eye contact (Stares at floor for the majority of encounter) Motor Behavior: steady gait and station and no abnormal motor movements Speech: normal rate/rhythm/volume of speech (Monotone, brief responses to questions) Affect: + depressed affect (Severely) and mood congruent with affect Mood: + depressed mood and + anxious mood Thought Process: goal directed thought process, clear/coherent thought process and thought association intact Thought Content: reality based without delusions, + hopelessness, + worthlessness and + loneliness Suicidal Thoughts: denies suicidal intent (unable to convincingly contract for safety outside of the hospital); + reports suicidal thoughts and + reports suicidal plan (Reports consideration to "take a bunch of pills or something") Homicidal Thoughts: denies homicidal thoughts Hallucinations: no auditory hallucinations and no visual hallucinations Cognition: attention grossly intact and language grossly intact Insight: + impaired insight Judgement: + impaired judgement Vital Signs (Past 24 Hours) Last Vital Signs Temp 36.7 C 05/12/19 03:40 Pulse 84 05/12/19 09:03 Resp 16 05/12/19 09:03 BP 148/88 H 05/12/19 09:03 Pulse Ox 97 05/12/19 03:40 Principal Diagnosis - Major depressive disorder, recurrent, severe, without psychotic features - Generalized anxiety disorder Psychiatric Data 48-year-old male admitted voluntarily for inpatient psychiatric treatment on 05/12/19 after presenting to the ED with inability to function at home, admitting to suicidal thoughts, with consideration to overdose on pills. Pt was recently admitted to our unit involuntarily from 04/29/19 - 05/05/19 for similar concerns, having been unable to contract for safety after a visit with his outpatient psychiatrist. Pt states that there are no major situational changes presently, but that he continues to be overwhelmed with the stress of working multiple jobs and feeling as though he is not properly caring for himself at home. We were informed that patient will require transfer to an in-network facility - as he was only granted coverage last admission due to his involuntary commitment status. Referral was made to [facility], and patient was accepted for treatment. In the meantime, we have continued his outpatient medication regimen - updated after admission, as lithium was reportedly titrated to 900mg qHS this past weekend. Outpatient psychiatrist had also mentioned restarting low-dose Rexulti, with recognition that he may have experienced activation/akathisia at higher doses. Will defer additional changes to [facility]. Pt is at high risk of harm to self if discharged prematurely, as he has admitted to with consideration to overdose, has limited outpatient supports, and is presently failing outpatient treatment despite weekly appointments. Day of Discharge Assessment See H&P above for day of discharge interaction. Pt was accepted and discharged same-day, as it was found that our facility is not in network. Pt requested transfer to in-network facilities and will attend [facility]. Transition of Care Transition Of Care Record: was reviewed with the patient Advance Directives Advance Directives Information Provided: Yes Advance Directives: No Mental Health Advance Directive: No Advance Directives on File: No Living Will: No Power of Auto Garage Attendant: No Advance Directives Reason:: Declines as Mental Health Visit. Risk Factors Assessment Pt's risk of harm to self remain elevated presently. He is being transferred to an in-network inpatient psychiatric facility as discharge home is not appropriate presently. Male: Yes : Yes Do You Have Access To A Gun?: No Health Problems: No Mental Health Diagnoses: Yes Previous Attempt: No Previous Psychiatric Hospitalization: Yes Hopelessness: Yes Protective Factors Assessment : No Responsible for Young Children: No Employed: Yes ([employer] ([employer])) Tobacco Cessation at Discharge Tobacco Cessation Medication Prescribed at Discharge: Not Applicable/Non-Smoker Total Time Total Time Spent: Greater Than 30 Minutes Total Time Includes: Examination of the patient, Discharge Planning, Medication Reconciliation and Communication with other providers Discharge Data Lab Results 05/11/19 05/11/19 05/11/19 21:57 21:57 22:29 WBC 8.42 RBC 5.06 Hgb 15.1 Hct 44.1 MCV 87.2 MCH 29.8 MCHC 34.2 RDW Std Deviation 39.0 RDW Coeff of Ari 12.2 Plt Count 264 MPV 9.5 Immature Gran % (Auto) 0.2 Neut % (Auto) 70.5 Lymph % (Auto) 16.5 Mcminn % (Auto) 8.1 Eos % (Auto) 4.3 Baso % (Auto) 0.4 Immature Gran # (Auto) 0.02 Neut # (Auto) 5.94 Lymph # (Auto) 1.39 Mcminn # (Auto) 0.68 H Eos # (Auto) 0.36 Baso # (Auto) 0.03 Sodium Potassium Chloride Carbon Dioxide Anion Gap BUN Creatinine Est Cr Clr Drug Dosing Est GFR ( Amer) Est GFR (Non-Af Amer) BUN/Creatinine Ratio Glucose Calcium Total Bilirubin AST ALT Alkaline Phosphatase Total Protein Albumin Globulin Albumin/Globulin Ratio TSH Urine Color Dark Yellow Urine Appearance Clear Urine pH 5.0 Ur Specific Franklin 1.027 Urine Protein Negative Urine Glucose (UA) Negative Urine Ketones Trace H Urine Blood Negative Urine Nitrite Negative Urine Bilirubin Negative Urine Urobilinogen Negative Ur Leukocyte Esterase Negative Salicylates Urine Opiates Screen Neg Ur Methadone, Qual Neg Acetaminophen Urine Barbiturates Neg Ur Phencyclidine (PCP) Neg U Amphetamin/Meth Scrn Neg MDMA (Ecstasy) Screen Neg U Benzodiazepines Scrn Neg [place] Ur Cocaine Metabolite Neg U Marijuana (THC) Screen Neg Ethyl Alcohol mg/dL 05/11/19 05/11/19 05/11/19 22:29 22:29 22:29 WBC RBC Hgb Hct MCV MCH MCHC RDW Std Deviation RDW Coeff of Ari Plt Count MPV Immature Gran % (Auto) Neut % (Auto) Lymph % (Auto) Mcminn % (Auto) Eos % (Auto) Baso % (Auto) Immature Gran # (Auto) Neut # (Auto) Lymph # (Auto) Mcminn # (Auto) Eos # (Auto) Baso # (Auto) Sodium 139 Potassium 3.5 Chloride 108 H Carbon Dioxide 25 Anion Gap 6.0 BUN 13 Creatinine 1.01 Est Cr Clr Drug Dosing 106.3 Est GFR ( Amer) 102.9 Est GFR (Non-Af Amer) 88.8 BUN/Creatinine Ratio 13.2 Glucose 107 H Calcium 8.9 Total Bilirubin 0.4 AST 15 ALT 30 Alkaline Phosphatase 53 Total Protein 7.0 Albumin 3.6 Globulin 3.4 Albumin/Globulin Ratio 1.1 TSH 2.410 Urine Color Urine Appearance Urine pH Ur Specific Franklin Urine Protein Urine Glucose (UA) Urine Ketones Urine Blood Urine Nitrite Urine Bilirubin Urine Urobilinogen Ur Leukocyte Esterase Salicylates 8.0 Urine Opiates Screen Ur Methadone, Qual Acetaminophen < 2 L Urine Barbiturates Ur Phencyclidine (PCP) U Amphetamin/Meth Scrn MDMA (Ecstasy) Screen U Benzodiazepines Scrn [place] 0.9 Ur Cocaine Metabolite U Marijuana (THC) Screen Ethyl Alcohol mg/dL < 3.0 Hospital Course (1) Suicidal ideation: 05/12 - Admitted to a locked inpatient behavioral health unit, on q15 minute safety checks - Encourage medication initiation/adjustments as indicated - Encourage participation in group and recreational therapies - Gather collateral information from outpatient providers - Suggest family meeting to involve outpatient supports in safety planning - Arrange appropriate aftercare (2) Depression: 05/12 - Continue home medication regimen - mirtazapine 45mg qHS, methylphenidate 54mg, and zaleplon 10mg qHS. [place] was recently titrated to 900mg qHS - Will order lithium level for evening of 05/15 - as dose increase was started 05/10 - Consider retrial of low-dose Rexulti - which patient has brought to the unit, as it is non-formulary - Encourage consideration for changes to job/housing situation - as financial and home stressors continue to be unmanageable for him in his present condition - Meeting with outpatient piano case and bench assembler - Encourage participation in group and recreational programming - Assist with development of healthy and effective coping strategies - Encourage involvement in safety and discharge planning (3) Generalized anxiety disorder: 05/12 - Continue home medication regimen - clonazepam 0.5mg available once daily as needed for acute anxiety - Hydroxyzine 25mg q4h prn acute anxiety as standing admission order - Encourage development of healthy and effective coping strateiges (4) Asthma: 05/12 - Continue home doses of loratadine, Flonase, and Advair Mental Health & Subst Abuse Tx Psychiatrist Name of Psychiatrist: [facility] - Dr. Alexander Psychiatrist's Psychiatric Appointment Comment: [address], [address], [place] [address] Therapist Name of Therapist: [facility] - Mildred Emery LCSW Therapist's Therapy Appointment Comment: [address], [address], [place] [address] Candle Molder Machine Name of Candle Molder Machine: [facility] - Russell Sanchez Phone Number for Candle Molder Machine: [phone] Post Discharge Appointments Primary Care Physician Name Of Family Doctor: Stanley Leon Primary Care Time of Appointment with PCP: Follow up as needed Provider Appointment Comment: [address] [place] [address] Smoking Cessation Counseling Tobacco Cessation Medication Prescribed at Discharge: Not Applicable/Non-Smoker Contact Information Discharge Discharge [address]: [address] [place] [id number] Discharge Plan Discharge Items Patient Disposition: Transfer Behavioral Health Fac Reason For Visit: DEPRESSION Discharge Diagnosis: - Depression - Generalized anxiety Condition on Discharge: Fair Activity: Resume your previous activity Non-emergency contact: Primary Care Provider, Psychiatrist, Therapist and Airborne And Air Delivery Specialist Call non-emergency contact if: you have any medication questions and your symptoms worsen Follow-up/Referrals: Michael Leon MD [Primary Care Provider] - Diet: Regular Addtl Attending Provider Instructions: SPECIAL CARE INSTRUCTIONS: You are being [facility], at your request. Formal discharge recommendations will be provided at time of discharge from their facility. 1. Follow through with your scheduled aftercare appointments. If unable to keep an appointment, please call to reschedule. 2. Take your medication only as prescribed. Medication should not be changed or stopped without the approval of your doctor. In the event of worsening symptoms or concerns about side effects, contact your doctor immediately. 3. Utilize new healthy coping skills, anger management skills, and stress management skills learned during your hospitalization. Journal feelings and process them with a support person. Identify stressors or situations that may result in relapse, deterioration or inappropriate behaviors and develop a plan to deal with those issues. 4. If your coping skills are ineffective and you are in crisis, contact your outpatient providers for direction. If unable to reach your providers, please call the CAN HELP LINE AT or go to the closest Emergency Room. 5. Avoid alcohol and un-prescribed drugs. 6. You have been provided with the Mental Health Advance Directives Pamphlet for your review. AFTERCARE APPOINTMENTS: * Please call your insurance company prior to your scheduled appointment to confirm your aftercare providers are covered. Take your insurance information to your appointments. WHO TO CALL AND WHEN: Medical Emergencies: For questions or emergencies related to your hospital stay, please contact the Inpatient Behavioral Health Unit at [phone]. A psychiatric technician is on-call 07/01 for the Behavioral Health Unit for emergencies At any time you feel your situation is an emergency, you may also call 911 immediately. Your Discharge Instructions noted above were prepared by provider Ivonne Kincaid PA-C. Pending Studies at Discharge: Yes Studies:: Pt will require lithium level to be drawn - dose changed to 900mg qHS as of 05/10/19 Stand-Alone Forms: [facility], Suicide Prevention Resources Medications and DC Order Prescriptions: Continued clonazepam 0.5 mg tablet 0.5 mg DIRECTED PRN (Reason: Anxiety) RF: 0 methylphenidate HCl 54 mg Tablet Extended Release 24hr 54 mg PO DAILY RF: 0 Flonase Allergy Relief 50 mcg DAILY RF: 0 amlodipine 2.5 mg tablet 2.5 mg DAILY RF: 0 fluticasone propion-salmeterol [Advair Diskus] 250-50 mcg/dose blister with device 250 inh INHALATION DIRECTED RF: 0 mirtazapine 45 mg tablet 45 mg QPM RF: 0 zaleplon 10 mg capsule 10 mg QPM RF: 0 Changed lithium carbonate 300 mg Tablet 900 mg PO HS Qty: 0 RF: 0 Discharge Orders: Discharge Order (Routine); Ordered 05/12/19 Ordered By: Ivonne Kincaid Admission Data Admit Date/Time: 05/12/19 01:56 Attending Provider: Linda Nelson Admit Provider: Neri Marroquin I. Primary Care Provider: Michael Leon Other Interventions: PSY Interdisciplinary Discharge Planning Last Done: 05/12/19 11:04 Coding Level of Care Code 54381 D/C day mgmt > 30 min Diagnoses Suicidal ideation R45.851 Depression F33.2 Active/Remission status: currently active Depression Type: major depressive disorder Major depression episode severity: severe Major depression recurrence: recurrent Psychotic features: without psychotic features Generalized anxiety disorder F41.1 Asthma J45.909
[2019-05-12] MEDS ORDERED: MIRTAZAPINE TAB 15 MG TAB PO SCH (22:00)
[2019-05-12] MEDS ORDERED: LITHIUM CARBONATE 300 MG TAB PO SCH ×2 (22:00)
[2019-05-12] MEDS ORDERED: ZALEPLON 5 MG CAPSULE PO SCH (22:00)
== END 2019-05-12 16:50 | DRG 885 ==
LOC: ED 21:30 → 3S 05-12 01:56